=== PATIENT | female | born 1945 | race African-American/Black ===

== ENCOUNTER 2020-07-16 12:29 | Inpatient (IN) | payer MEDICARE, MEDICAID ==
[~2020-07-16] VITALS: Ht 167.6 cm; Wt 105.7 kg
[~2020-07-16 12:29] MED LIST: AMLO10TA4 PO; ATOR20TA PO; CLON0.5T4 PO; FLUC100T42 PO; GUAI120015 PO; LORA10TA7 PO; MELA3TAB63 PO; METF-416 PO; METO50TA95 PO; MONT10TA26 PO; OMEP20CA4 PO; PANT40TA4 PO; ROSU5TAB PO
[2020-07-16] MEDS ORDERED: ALBUTEROL (0.083%) 2.5MG/3ML NEB HHN STA (12:55)
[2020-07-16] MEDS ORDERED: METHYLPREDNISOLONE SOD SUCC 125 MG/2 ML VIAL IV STA (12:55)
[2020-07-16] MEDS ORDERED: IPRATROPIUM BROMIDE (0.02%) 0.5MG/2.5ML NEB HHN STA (12:55)
[2020-07-16] MEDS ORDERED: MAGNESIUM 2 G PREMIX 50 ML IV ONE (13:00)
[2020-07-16] MEDS ORDERED: ERYTHROMYCIN BASE 0.5% OPHTH OINT 3.5GM LEFTEYE ONE (13:00)
[2020-07-16 13:14] LABS: HEMATOCRIT. 33.4 % (36.0-48.0); HEMOGLOBIN. 10.6 g/dL (12.0-16.0); MEAN CORPUSCULAR HEMOGLOBIN 26.1 pg (28.0-32.0); MEAN CORPUSCULAR VOLUME 82.6 fL (81.0-99.0); MEAN PLATELET VOLUME 7.8 fl (7.4-10.4); PLATELET 296 x1000/uL (130-400); RED BLOOD CELL COUNT 4.05 mill/uL (4.2-5.4); RED CELL DISTRIBUTION WIDTH 19.5 % (11.6-14.6)
[2020-07-16 13:33] LABS: CHLORIDE 100 mEq/L (98-107)
[2020-07-16 13:43] LABS: PLATELET ESTIMATE NORMAL
[2020-07-16] MEDS ORDERED: ONDANSETRON HCL 4MG/2ML INJ IV ONE (14:15)
[2020-07-16] MEDS ORDERED: MORPHINE SULFATE 4 MG/ML CPJ (NOT FOR IM USE) IV ONE (14:15)
[2020-07-16] MEDS ORDERED: LEVOFLOXACIN 750MG PREMIX 150 ML IV NR (14:45)
[2020-07-16] MEDS ORDERED: CEFTRIAXONE 1 G PREMIX 50 ML IV SCH (16:15)
[2020-07-16] MEDS ORDERED: AZITHROMYCIN 500 MG in DEXT 5% WATER 250 ML IV SCH (17:00)
[2020-07-16 17:17] LABS: BG BASE EXCESS 6.5 mmol/L (-2.0-2.0); BG CARBOXYHEMOGLOBIN 3.1 % (0.5-1.5); BG DEOXYHEMOGLOBIN 19.4 % (0.0-5.0); BG HCO3 ACT 31.4 mmol/L (22.0-26.0); BG METHEMOGLOBIN 0.2 % (0.0-1.5); BG OXYGEN SATURATION 79.9 % (92.0-98.5); BG OXYHEMOGLOBIN 77.3 % (94.0-97.0); BG PCO2 46.9 mmHg (35.0-45.0); BG PH 7.443 (7.350-7.450); BG PO2 43.6 mmHg (75.0-100.0); BG SAMPLE SITE RIGHT BRACHIAL; BG TOTAL HEMOGLOBIN 9.9 g/dL (12.0-18.0); BG VENT MODE ROOM AIR
[2020-07-16 17:54] LABS: PROTHROMBIN TIME 10.6 sec (9.6-11.0)
[2020-07-16 18:00] VITALS: BP 158/83
[2020-07-16] MEDS ORDERED: IPRATROPIUM/ALBUTEROL 0.5-3(2.5)MG/3ML NEB HHN SCH (18:00)
[2020-07-16 20:00] VITALS: BP 171/84
[2020-07-16] MEDS ORDERED: DEXTROSE 50% WATER 50ML SYRINGE IV PRN (21:00)
[2020-07-16] MEDS: AZITHROMYCIN 500 MG in DEXT 5% WATER 250 ML IV SCH (21:47)
[2020-07-16] MEDS: BLOOD SUGAR DIAGNOSTIC STRIP TEST SCH (21:53)
[2020-07-16] MEDS: ENOXAPARIN 30MG/0.3ML SYR SUBCUT SCH (22:05)
[2020-07-16] MEDS: CLONIDINE 0.1MG TABLET PO PRN (22:05)
[2020-07-16] MEDS: INSULIN LISPRO 100 UNITS/ML SUBCUT SCH (22:06)
[2020-07-17] MEDS: ALBUTEROL 6.7GM HFA INHALER ORI SCH ×6 (00:40→20:07)
[2020-07-17 04:00] VITALS: BP_SYST 138; BP_SYST 144; BP_DIAS 69; BP_DIAS 77
[2020-07-17] MEDS: ACETAMINOPHEN 325MG TABLET PO PRN ×2 (05:17→08:30)
[2020-07-17] MEDS: BLOOD SUGAR DIAGNOSTIC STRIP TEST SCH ×4 (06:13→21:00)
[2020-07-17] MEDS: METFORMIN HCL 500MG TABLET PO SCH ×2 (06:33→16:23)
[2020-07-17] MEDS: INSULIN LISPRO 100 UNITS/ML SUBCUT SCH ×4 (06:34→21:00)
[2020-07-17 08:00] VITALS: BP 152/75
[2020-07-17] MEDS: DEXAMETHASONE 2MG TABLET PO SCH (08:28)
[2020-07-17] MEDS: ENOXAPARIN 30MG/0.3ML SYR SUBCUT SCH ×2 (08:30→21:00)
[2020-07-17] MEDS ORDERED: METOPROLOL TARTRATE 50MG TABLET PO SCH (09:00)
[2020-07-17] MEDS ORDERED: ENOXAPARIN 40MG/0.4ML SYR SUBCUT SCH (09:00)
[2020-07-17] MEDS: INSULIN GLARGINE UD 100 UNITS/ML SYR SUBCUT SCH ×2 (09:38→21:02)
[2020-07-17 10:35] LABS: HEMATOCRIT. 30.1 % (36.0-48.0); HEMOGLOBIN. 9.5 g/dL (12.0-16.0); MEAN CORPUSCULAR HEMOGLOBIN 26.2 pg (28.0-32.0); MEAN CORPUSCULAR VOLUME 82.9 fL (81.0-99.0); MEAN PLATELET VOLUME 7.8 fl (7.4-10.4); PLATELET 257 x1000/uL (130-400); RED BLOOD CELL COUNT 3.63 mill/uL (4.2-5.4); RED CELL DISTRIBUTION WIDTH 19.5 % (11.6-14.6)
[2020-07-17 12:00] VITALS: BP 146/67
[2020-07-17] MEDS ORDERED: ALPR0.5T MT (12:35)
[2020-07-17] MEDS: CEFTRIAXONE 1,000 MG in DEXTROSE 5% WATER 50 ML IV SCH (13:25)
[2020-07-17] MEDS: ALPRAZOLAM 0.5 MG TABLET PO PRN ×2 (14:47→23:08)
[2020-07-17] MEDS: AMLODIPINE 10MG TABLET PO SCH (14:47)
[2020-07-17 15:31] LABS: BG BASE EXCESS 7.8 mmol/L (-2.0-2.0); BG CARBOXYHEMOGLOBIN 1.2 % (0.5-1.5); BG HCO3 ACT 31.8 mmol/L (22.0-26.0); BG METHEMOGLOBIN 0.3 % (0.0-1.5); BG OXYHEMOGLOBIN 97.5 % (94.0-97.0); BG PCO2 42.5 mmHg (35.0-45.0); BG PH 7.492 (7.350-7.450); BG PO2 318.8 mmHg (75.0-100.0); BG SAMPLE SITE RIGHT RADIAL; BG TOTAL HEMOGLOBIN 9.2 g/dL (12.0-18.0); BG VENT MODE MASK - NRB
[2020-07-17 16:00] VITALS: BP 158/79
[2020-07-17] MEDS ORDERED: CEFTRIAXONE 1 G PREMIX 50 ML IV SCH (16:00)
[2020-07-17] MEDS: MONTELUKAST SODIUM 10MG TABLET PO SCH (16:23)
[2020-07-17] MEDS: ONDANSETRON HCL 4MG/2ML INJ IV PRN (16:23)
[2020-07-17 20:00] VITALS: BP 146/76
[2020-07-17] MEDS: AZITHROMYCIN 500 MG in DEXT 5% WATER 250 ML IV SCH (20:55)
[2020-07-17] MEDS: ATORVASTATIN CALCIUM 20MG TABLET PO SCH (20:55)
[2020-07-18] VITALS: BP 140/78
[2020-07-18] MEDS: ONDANSETRON HCL 4MG/2ML INJ IV PRN (00:28)
[2020-07-18] MEDS: ALBUTEROL 6.7GM HFA INHALER ORI SCH ×2 (00:54→04:00)
[2020-07-18] MEDS: HYDROCODONE/ACETAMINOPHEN 10/325MG TABLET PO PRN ×3 (01:00→14:58)
[2020-07-18 04:00] VITALS: BP 137/70
[2020-07-18] MEDS: IPRATROPIUM/ALBUTEROL 0.5-3(2.5)MG/3ML NEB HHN PRN ×3 (05:01→15:41)
[2020-07-18] MEDS: INSULIN LISPRO 100 UNITS/ML SUBCUT SCH ×4 (06:58→21:44)
[2020-07-18] MEDS: BLOOD SUGAR DIAGNOSTIC STRIP TEST SCH ×4 (06:58→21:27)
[2020-07-18 07:11] LABS: HEMATOCRIT. 28.4 % (36.0-48.0); HEMOGLOBIN. 8.8 g/dL (12.0-16.0); MEAN CORPUSCULAR HEMOGLOBIN 25.5 pg (28.0-32.0); MEAN CORPUSCULAR VOLUME 82.3 fL (81.0-99.0); MEAN PLATELET VOLUME 8.7 fl (7.4-10.4); PLATELET 236 x1000/uL (130-400); RED BLOOD CELL COUNT 3.45 mill/uL (4.2-5.4); RED CELL DISTRIBUTION WIDTH 18.8 % (11.6-14.6)
[2020-07-18 07:11] LABS: PLATELET ESTIMATE NORMAL
[2020-07-18] MEDS: ENOXAPARIN 30MG/0.3ML SYR SUBCUT SCH ×2 (08:17→21:27)
[2020-07-18] MEDS: DEXAMETHASONE 2MG TABLET PO SCH (08:17)
[2020-07-18] MEDS: METFORMIN HCL 500MG TABLET PO SCH (08:17)
[2020-07-18] MEDS: ALPRAZOLAM 0.5 MG TABLET PO PRN (08:17)
[2020-07-18] MEDS: AMLODIPINE 10MG TABLET PO SCH (08:17)
[2020-07-18 09:00] VITALS: BP 149/71
[2020-07-18] MEDS: INSULIN GLARGINE UD 100 UNITS/ML SYR SUBCUT SCH ×2 (10:39→21:45)
[2020-07-18 11:49] VITALS: BP 125/71
[2020-07-18] MEDS: CEFTRIAXONE 1,000 MG in DEXTROSE 5% WATER 50 ML IV SCH (14:57)
[2020-07-18 15:40] VITALS: BP 147/77
[2020-07-18] MEDS: LORAZEPAM 0.5MG TABLET PO PRN ×2 (16:34→21:51)
[2020-07-18] MEDS: MONTELUKAST SODIUM 10MG TABLET PO SCH (16:34)
[2020-07-18 17:50] LABS: PLATELET ESTIMATE NORMAL
[2020-07-18 20:26] VITALS: BP 147/82
[2020-07-18] MEDS: IPRATROPIUM/ALBUTEROL 0.5-3(2.5)MG/3ML NEB HHN SCH (21:04)
[2020-07-18] MEDS: AZITHROMYCIN 500 MG in DEXT 5% WATER 250 ML IV SCH (21:26)
[2020-07-18] MEDS: ATORVASTATIN CALCIUM 20MG TABLET PO SCH (21:27)
[2020-07-19 00:10] VITALS: BP 139/73
[2020-07-19] MEDS: ACETYLCYSTEINE 100MG/ML 10% VIAL 4ML INH SCH ×3 (00:39→16:20)
[2020-07-19] MEDS: IPRATROPIUM/ALBUTEROL 0.5-3(2.5)MG/3ML NEB HHN SCH ×6 (00:39→22:12)
[2020-07-19] MEDS: HYDROCODONE/ACETAMINOPHEN 10/325MG TABLET PO PRN ×3 (03:01→20:36)
[2020-07-19] MEDS: ONDANSETRON HCL 4MG/2ML INJ IV PRN ×2 (03:06→11:41)
[2020-07-19 04:00] VITALS: BP 132/64
[2020-07-19] MEDS: BLOOD SUGAR DIAGNOSTIC STRIP TEST SCH ×4 (06:29→20:42)
[2020-07-19 08:07] VITALS: BP 149/72
[2020-07-19] MEDS: AMLODIPINE 10MG TABLET PO SCH (08:28)
[2020-07-19] MEDS: LORAZEPAM 0.5MG TABLET PO PRN ×2 (08:28→16:51)
[2020-07-19] MEDS: ENOXAPARIN 30MG/0.3ML SYR SUBCUT SCH ×2 (08:30→20:37)
[2020-07-19] MEDS: INSULIN LISPRO 100 UNITS/ML SUBCUT SCH ×4 (08:33→21:10)
[2020-07-19 10:34] LABS: HEMATOCRIT. 28.6 % (36.0-48.0); MEAN CORPUSCULAR HEMOGLOBIN 26.2 pg (28.0-32.0); MEAN CORPUSCULAR VOLUME 82.9 fL (81.0-99.0); MEAN PLATELET VOLUME 8.4 fl (7.4-10.4); PLATELET 256 x1000/uL (130-400); RED BLOOD CELL COUNT 3.45 mill/uL (4.2-5.4); RED CELL DISTRIBUTION WIDTH 18.8 % (11.6-14.6)
[2020-07-19] MEDS ORDERED: TERBUTALINE SULFATE 1MG/ML VIAL SUBCUT NR (11:45)
[2020-07-19 11:59] VITALS: BP 152/74
[2020-07-19 12:01] LABS: CLARITY URINE CLEAR (CLEAR); COLOR URINE YELLOW (YELLOW); KETONES URINE NEGATIVE (NEGATIVE); LEUKOCYTE ESTERASE URINE 1+ (NEGATIVE); NITRITE URINE NEGATIVE (NEGATIVE); OCCULT BLOOD URINE TRACE (NEGATIVE); PROTEIN URINE TRACE (NEGATIVE); SPECIFIC GRAVITY URINE 1.021 (1.005-1.030); UROBILINOGEN URINE 0.2 E.U./dL (0.2-1.0)
[2020-07-19 12:15] LABS: *AMPHETAMINES SCREEN URINE NEGATIVE (NEGATIVE); *BARBITURATES SCREEN URINE NEGATIVE (NEGATIVE); *BENZODIAZEPINES SCREEN URINE PRESUMTIVE POSITIVE (NEGATIVE); *COCAINE SCREEN URINE NEGATIVE (NEGATIVE); METHADONE URINE SCREEN NEGATIVE (NEGATIVE)
[2020-07-19 12:16] LABS: CANNABINOID URINE SCREEN NEGATIVE (NEGATIVE); OPIATES URINE SCREEN PRESUMTIVE POSITIVE (NEGATIVE); PHENCYCLIDINE URINE SCREEN NEGATIVE (NEGATIVE)
[2020-07-19] MEDS: PREDNISONE 20MG TABLET PO SCH (12:34)
[2020-07-19] MEDS: INSULIN GLARGINE UD 100 UNITS/ML SYR SUBCUT SCH ×2 (12:35→21:10)
[2020-07-19 12:44] LABS: PLATELET ESTIMATE NORMAL
[2020-07-19] MEDS: CEFTRIAXONE 1,000 MG in DEXTROSE 5% WATER 50 ML IV SCH (14:25)
[2020-07-19 16:15] VITALS: BP 149/75
[2020-07-19] MEDS: MONTELUKAST SODIUM 10MG TABLET PO SCH (16:51)
[2020-07-19 20:00] VITALS: BP 145/82
[2020-07-19] MEDS: ATORVASTATIN CALCIUM 20MG TABLET PO SCH (20:34)
[2020-07-19] MEDS: AZITHROMYCIN 500 MG in DEXT 5% WATER 250 ML IV SCH (20:55)
[2020-07-20] VITALS (7 sets, daily range): BP systolic 133–178; BP diastolic 66–91
[2020-07-20] MEDS: ACETYLCYSTEINE 100MG/ML 10% VIAL 4ML INH SCH ×3 (01:00→15:51)
[2020-07-20] MEDS: IPRATROPIUM/ALBUTEROL 0.5-3(2.5)MG/3ML NEB HHN SCH ×6 (01:00→20:53)
[2020-07-20] MEDS: LORAZEPAM 0.5MG TABLET PO PRN (05:13)
[2020-07-20] MEDS: BLOOD SUGAR DIAGNOSTIC STRIP TEST SCH ×4 (07:20→20:48)
[2020-07-20] MEDS: PREDNISONE 20MG TABLET PO SCH (08:48)
[2020-07-20] MEDS: HYDROCODONE/ACETAMINOPHEN 10/325MG TABLET PO PRN ×3 (08:49→20:47)
[2020-07-20] MEDS: AMLODIPINE 10MG TABLET PO SCH (08:49)
[2020-07-20] MEDS: ENOXAPARIN 30MG/0.3ML SYR SUBCUT SCH ×2 (09:00→20:47)
[2020-07-20] MEDS: INSULIN LISPRO 100 UNITS/ML SUBCUT SCH ×4 (09:52→20:48)
[2020-07-20] MEDS: INSULIN GLARGINE UD 100 UNITS/ML SYR SUBCUT SCH ×2 (11:04→21:04)
[2020-07-20] MEDS ORDERED: ALBU18HF2 IH (12:48)
[2020-07-20] MEDS ORDERED: P20 PO (12:48)
[2020-07-20] MEDS ORDERED: ALPR0.5T MT (12:48)
[2020-07-20] MEDS ORDERED: GLIP5TAB12 MT (12:48)
[2020-07-20] MEDS ORDERED: TERBUTALINE SULFATE 1MG/ML VIAL SUBCUT NR (16:45)
[2020-07-20] MEDS: CLONIDINE 0.1MG TABLET PO PRN (16:50)
[2020-07-20] MEDS: MONTELUKAST SODIUM 10MG TABLET PO SCH (17:07)
[2020-07-20] MEDS: CEFTRIAXONE 1,000 MG in DEXTROSE 5% WATER 50 ML IV SCH (17:18)
[2020-07-20] MEDS ORDERED: *PATIENT'S OWN MEDICATION STORAGE XX SCH (19:15)
[2020-07-20] MEDS: ATORVASTATIN CALCIUM 20MG TABLET PO SCH (20:48)
[2020-07-20] MEDS: AZITHROMYCIN 500 MG in DEXT 5% WATER 250 ML IV SCH (20:48)
[2020-07-20] MEDS: THEOPHYLLINE ANHYDROUS 80 MG/15 ML 120ML PO SCH (21:02)
[2020-07-20] MEDS: ONDANSETRON HCL 4MG/2ML INJ IV PRN (21:14)
[2020-07-21] VITALS: BP 145/73
[2020-07-21] MEDS: LORAZEPAM 0.5MG TABLET PO PRN ×3 (00:13→18:42)
[2020-07-21] MEDS: ACETYLCYSTEINE 100MG/ML 10% VIAL 4ML INH SCH ×4 (00:37→16:03)
[2020-07-21] MEDS: IPRATROPIUM/ALBUTEROL 0.5-3(2.5)MG/3ML NEB HHN SCH ×6 (00:37→22:02)
[2020-07-21 04:30] VITALS: BP 151/75
[2020-07-21] MEDS: HYDROCODONE/ACETAMINOPHEN 10/325MG TABLET PO PRN ×4 (04:52→20:57)
[2020-07-21] MEDS: THEOPHYLLINE ANHYDROUS 80 MG/15 ML 120ML PO SCH ×3 (05:12→21:04)
[2020-07-21] MEDS: BLOOD SUGAR DIAGNOSTIC STRIP TEST SCH ×4 (07:20→20:59)
[2020-07-21] MEDS: INSULIN LISPRO 100 UNITS/ML SUBCUT SCH ×4 (07:50→20:58)
[2020-07-21 08:00] VITALS: BP 170/81
[2020-07-21] MEDS: ENOXAPARIN 30MG/0.3ML SYR SUBCUT SCH ×2 (09:02→20:58)
[2020-07-21] MEDS: PREDNISONE 20MG TABLET PO SCH (09:03)
[2020-07-21] MEDS: AMLODIPINE 10MG TABLET PO SCH (09:04)
[2020-07-21 12:00] VITALS: BP 145/69
[2020-07-21] MEDS: ONDANSETRON HCL 4MG/2ML INJ IV PRN (12:45)
[2020-07-21] MEDS ORDERED: INSULIN GLARGINE UD 100 UNITS/ML SYR SUBCUT NR (13:30)
[2020-07-21 13:49] LABS: BG BASE EXCESS 7.4 mmol/L (-2.0-2.0); BG CARBOXYHEMOGLOBIN 2.2 % (0.5-1.5); BG DEOXYHEMOGLOBIN 13.5 % (0.0-5.0); BG HCO3 ACT 31.8 mmol/L (22.0-26.0); BG METHEMOGLOBIN 0.3 % (0.0-1.5); BG OXYGEN SATURATION 86.2 % (92.0-98.5); BG PCO2 44.5 mmHg (35.0-45.0); BG PH 7.472 (7.350-7.450); BG PO2 50.8 mmHg (75.0-100.0); BG TOTAL HEMOGLOBIN 9.5 g/dL (12.0-18.0)
[2020-07-21] MEDS ORDERED: THEOL PO (14:15)
[2020-07-21 16:00] VITALS: BP 142/71
[2020-07-21] MEDS: MONTELUKAST SODIUM 10MG TABLET PO SCH (18:25)
[2020-07-21] MEDS: METFORMIN HCL 500MG TABLET PO SCH (18:25)
[2020-07-21 20:31] VITALS: BP 154/85
[2020-07-21] MEDS: ATORVASTATIN CALCIUM 20MG TABLET PO SCH (20:56)
[2020-07-21] MEDS: HYDRALAZINE HCL 50MG TABLET PO SCH (20:57)
[2020-07-21] MEDS: INSULIN GLARGINE UD 100 UNITS/ML SYR SUBCUT SCH (21:04)
[2020-07-22] VITALS (8 sets, daily range): BP systolic 140–159; BP diastolic 69–85
[2020-07-22] MEDS: ACETYLCYSTEINE 100MG/ML 10% VIAL 4ML INH SCH ×3 (00:55→21:51)
[2020-07-22] MEDS: IPRATROPIUM/ALBUTEROL 0.5-3(2.5)MG/3ML NEB HHN SCH ×6 (00:57→21:51)
[2020-07-22] MEDS: HYDROCODONE/ACETAMINOPHEN 10/325MG TABLET PO PRN ×4 (01:25→20:35)
[2020-07-22] MEDS: THEOPHYLLINE ANHYDROUS 80 MG/15 ML 120ML PO SCH ×3 (05:55→22:00)
[2020-07-22] MEDS: BLOOD SUGAR DIAGNOSTIC STRIP TEST SCH ×4 (06:20→20:26)
[2020-07-22] MEDS: INSULIN LISPRO 100 UNITS/ML SUBCUT SCH ×4 (07:50→20:26)
[2020-07-22] MEDS: ENOXAPARIN 30MG/0.3ML SYR SUBCUT SCH ×2 (08:30→20:33)
[2020-07-22] MEDS: PREDNISONE 20MG TABLET PO SCH (08:30)
[2020-07-22] MEDS: HYDRALAZINE HCL 50MG TABLET PO SCH ×2 (08:31→20:35)
[2020-07-22] MEDS: AMLODIPINE 10MG TABLET PO SCH (08:31)
[2020-07-22] MEDS: ONDANSETRON HCL 4MG/2ML INJ IV PRN ×2 (08:31→16:58)
[2020-07-22] MEDS: METFORMIN HCL 500MG TABLET PO SCH ×2 (08:31→16:58)
[2020-07-22] MEDS: INSULIN GLARGINE UD 100 UNITS/ML SYR SUBCUT SCH ×2 (10:19→22:00)
[2020-07-22] MEDS: LORAZEPAM 0.5MG TABLET PO PRN (16:58)
[2020-07-22] MEDS: MONTELUKAST SODIUM 10MG TABLET PO SCH (16:58)
[2020-07-22] MEDS: ATORVASTATIN CALCIUM 20MG TABLET PO SCH (20:34)
[2020-07-23] VITALS (7 sets, daily range): BP systolic 125–158; BP diastolic 59–81
[2020-07-23] MEDS: ACETYLCYSTEINE 100MG/ML 10% VIAL 4ML INH SCH ×2 (00:06→09:22)
[2020-07-23] MEDS: IPRATROPIUM/ALBUTEROL 0.5-3(2.5)MG/3ML NEB HHN SCH ×5 (00:10→21:00)
[2020-07-23] MEDS: ONDANSETRON HCL 4MG/2ML INJ IV PRN ×3 (01:22→15:36)
[2020-07-23] MEDS: HYDROCODONE/ACETAMINOPHEN 10/325MG TABLET PO PRN ×4 (03:16→22:06)
[2020-07-23] MEDS: THEOPHYLLINE ANHYDROUS 80 MG/15 ML 120ML PO SCH ×3 (06:00→20:51)
[2020-07-23] MEDS: INSULIN LISPRO 100 UNITS/ML SUBCUT SCH ×4 (07:50→20:28)
[2020-07-23] MEDS: BLOOD SUGAR DIAGNOSTIC STRIP TEST SCH ×4 (08:14→20:27)
[2020-07-23] MEDS: ENOXAPARIN 30MG/0.3ML SYR SUBCUT SCH ×2 (08:38→20:48)
[2020-07-23] MEDS: AMLODIPINE 10MG TABLET PO SCH (08:39)
[2020-07-23] MEDS: HYDRALAZINE HCL 50MG TABLET PO SCH ×2 (08:39→20:27)
[2020-07-23] MEDS: PREDNISONE 20MG TABLET PO SCH (08:39)
[2020-07-23] MEDS: METFORMIN HCL 500MG TABLET PO SCH ×2 (08:39→17:26)
[2020-07-23] MEDS: INSULIN GLARGINE UD 100 UNITS/ML SYR SUBCUT SCH ×2 (11:04→20:54)
[2020-07-23] MEDS: MONTELUKAST SODIUM 10MG TABLET PO SCH (17:26)
[2020-07-23] MEDS: IPRATROPIUM/ALBUTEROL 0.5-3(2.5)MG/3ML NEB HHN PRN (18:20)
[2020-07-23] MEDS: ATORVASTATIN CALCIUM 20MG TABLET PO SCH (20:27)
[2020-07-23] MEDS: ACETAMINOPHEN 325MG TABLET PO PRN (20:27)
[2020-07-23] MEDS: LORAZEPAM 0.5MG TABLET PO PRN (20:47)
[2020-07-23 21:45] LABS: HEMATOCRIT. 30.2 % (36.0-48.0); HEMOGLOBIN. 9.5 g/dL (12.0-16.0); MEAN CORPUSCULAR HEMOGLOBIN 26.3 pg (28.0-32.0); MEAN CORPUSCULAR VOLUME 83.6 fL (81.0-99.0); MEAN PLATELET VOLUME 7.9 fl (7.4-10.4); PLATELET 222 x1000/uL (130-400); RED BLOOD CELL COUNT 3.61 mill/uL (4.2-5.4); RED CELL DISTRIBUTION WIDTH 19.3 % (11.6-14.6)
[2020-07-23] MEDS ORDERED: LEVOFLOXACIN 500MG PREMIX 100 ML IV NR (22:00)
[2020-07-23] MEDS ORDERED: POTASSIUM CHLORIDE 20MEQ TABLET SR PO NR (22:51)
[2020-07-23 22:52] LABS: PLATELET ESTIMATE NORMAL
[2020-07-24] VITALS: BP 114/60
[2020-07-24] MEDS: IPRATROPIUM/ALBUTEROL 0.5-3(2.5)MG/3ML NEB HHN SCH ×5 (00:06→20:45)
[2020-07-24] MEDS: ONDANSETRON HCL 4MG/2ML INJ IV PRN ×3 (01:11→20:24)
[2020-07-24 04:00] VITALS: BP 132/70
[2020-07-24] MEDS: HYDROCODONE/ACETAMINOPHEN 10/325MG TABLET PO PRN ×3 (05:56→21:01)
[2020-07-24] MEDS: THEOPHYLLINE ANHYDROUS 80 MG/15 ML 120ML PO SCH ×3 (06:00→21:02)
[2020-07-24] MEDS: INSULIN LISPRO 100 UNITS/ML SUBCUT SCH ×4 (07:08→20:44)
[2020-07-24 07:52] LABS: HEMATOCRIT. 29.4 % (36.0-48.0); HEMOGLOBIN. 9.3 g/dL (12.0-16.0); MEAN CORPUSCULAR HEMOGLOBIN 26.1 pg (28.0-32.0); MEAN CORPUSCULAR VOLUME 82.4 fL (81.0-99.0); MEAN PLATELET VOLUME 8.1 fl (7.4-10.4); PLATELET 305 x1000/uL (130-400); RED BLOOD CELL COUNT 3.57 mill/uL (4.2-5.4); RED CELL DISTRIBUTION WIDTH 18.6 % (11.6-14.6)
[2020-07-24] MEDS: BLOOD SUGAR DIAGNOSTIC STRIP TEST SCH ×4 (08:15→20:44)
[2020-07-24 08:19] VITALS: BP 147/80
[2020-07-24] MEDS: METFORMIN HCL 500MG TABLET PO SCH ×2 (08:19→17:31)
[2020-07-24] MEDS: HYDRALAZINE HCL 50MG TABLET PO SCH ×2 (08:23→21:01)
[2020-07-24] MEDS: PREDNISONE 20MG TABLET PO SCH (08:23)
[2020-07-24] MEDS: AMLODIPINE 10MG TABLET PO SCH (08:24)
[2020-07-24] MEDS: ENOXAPARIN 30MG/0.3ML SYR SUBCUT SCH ×2 (08:36→21:02)
[2020-07-24] MEDS: INSULIN GLARGINE UD 100 UNITS/ML SYR SUBCUT SCH ×2 (10:50→21:56)
[2020-07-24 12:10] VITALS: BP 152/75
[2020-07-24 13:48] LABS: PLATELET ESTIMATE NORMAL
[2020-07-24] MEDS ORDERED: KCL 20MEQ/100ML PREMIX 100 ML IV NR (14:30)
[2020-07-24] MEDS: METOCLOPRAMIDE HCL 10MG TABLET PO PRN (15:22)
[2020-07-24 15:46] VITALS: BP 126/67
[2020-07-24] MEDS: MONTELUKAST SODIUM 10MG TABLET PO SCH (17:31)
[2020-07-24 20:52] VITALS: BP 144/78
[2020-07-24] MEDS ORDERED: LEVOFLOXACIN 250MG PREMIX 50 ML IV SCH (21:00)
[2020-07-24] MEDS: ATORVASTATIN CALCIUM 20MG TABLET PO SCH (21:00)
[2020-07-24] MEDS: LORAZEPAM 0.5MG TABLET PO PRN (21:56)
[2020-07-25 00:38] VITALS: BP 143/71
[2020-07-25] MEDS: IPRATROPIUM/ALBUTEROL 0.5-3(2.5)MG/3ML NEB HHN SCH ×4 (00:39→13:35)
[2020-07-25 04:00] VITALS: BP 144/67
[2020-07-25] MEDS: THEOPHYLLINE ANHYDROUS 80 MG/15 ML 120ML PO SCH ×2 (05:28→13:04)
[2020-07-25] MEDS: BLOOD SUGAR DIAGNOSTIC STRIP TEST SCH ×2 (06:33→12:03)
[2020-07-25] MEDS: HYDROCODONE/ACETAMINOPHEN 10/325MG TABLET PO PRN ×2 (06:40→13:57)
[2020-07-25] MEDS: METOCLOPRAMIDE HCL 10MG TABLET PO PRN (07:14)
[2020-07-25] MEDS: INSULIN LISPRO 100 UNITS/ML SUBCUT SCH ×2 (07:50→12:03)
[2020-07-25 08:00] VITALS: BP 118/55
[2020-07-25 08:02] LABS: HEMATOCRIT. 28.8 % (36.0-48.0); HEMOGLOBIN. 9.4 g/dL (12.0-16.0); MEAN CORPUSCULAR HEMOGLOBIN 26.9 pg (28.0-32.0); MEAN CORPUSCULAR VOLUME 82.7 fL (81.0-99.0); MEAN PLATELET VOLUME 7.9 fl (7.4-10.4); PLATELET 330 x1000/uL (130-400); RED BLOOD CELL COUNT 3.48 mill/uL (4.2-5.4); RED CELL DISTRIBUTION WIDTH 18.9 % (11.6-14.6)
[2020-07-25] MEDS: ENOXAPARIN 30MG/0.3ML SYR SUBCUT SCH (08:09)
[2020-07-25] MEDS: METFORMIN HCL 500MG TABLET PO SCH (08:10)
[2020-07-25] MEDS: PREDNISONE 20MG TABLET PO SCH (08:10)
[2020-07-25] MEDS: HYDRALAZINE HCL 50MG TABLET PO SCH (08:10)
[2020-07-25] MEDS: AMLODIPINE 10MG TABLET PO SCH (08:10)
[2020-07-25] MEDS: INSULIN GLARGINE UD 100 UNITS/ML SYR SUBCUT SCH (09:23)
[2020-07-25] MEDS: ONDANSETRON HCL 4MG/2ML INJ IV PRN (09:28)
[2020-07-25] MEDS: LORAZEPAM 0.5MG TABLET PO PRN (09:36)
[2020-07-25] MEDS ORDERED: POTASSIUM CHLORIDE 10MEQ TABLET SR PO NR (10:30)
[2020-07-25 11:46] VITALS: BP 144/77
[2020-07-25 11:46] LABS: PLATELET ESTIMATE NORMAL
[2020-07-25 12:00] VITALS: BP 115/51
[2020-07-25 13:57] VITALS: BP 115/51
[2020-07-25] MEDS ORDERED: LEVOFLOXACIN 250MG TABLET PO SCH (21:00)
== END 2020-07-25 15:44 | disposition home or self-care (01) | DRG 871 ==
LOC: ER 12:29 → 7EST 15:49 → EDBEDREQ 15:53 → ENRESERV 17:05 → 6WST 07-17 22:32
PROVIDERS: ADMIT Internal Medicine; ATTEND Internal Medicine
DX: A41.9 Sepsis, unspecified organism (principal); J96.20 Acute and chronic respiratory failure, unspecified whether with hypoxia or hypercapnia; J18.9 Pneumonia, unspecified organism; J44.1 Chronic obstructive pulmonary disease with (acute) exacerbation; E44.0 Moderate protein-calorie malnutrition; J44.0 Chronic obstructive pulmonary disease with (acute) lower respiratory infection; E11.9 Type 2 diabetes mellitus without complications; D64.9 Anemia, unspecified; E78.5 Hyperlipidemia, unspecified; E66.9 Obesity, unspecified; I10 Essential (primary) hypertension; I25.10 Atherosclerotic heart disease of native coronary artery without angina pectoris; K44.9 Diaphragmatic hernia without obstruction or gangrene; Z20.828 Contact with and (suspected) exposure to other viral communicable diseases; F41.9 Anxiety disorder, unspecified; E87.6 Hypokalemia; J45.909 Unspecified asthma, uncomplicated; Z68.37 Body mass index [BMI] 37.0-37.9, adult; Z99.81 Dependence on supplemental oxygen; Z88.0 Allergy status to penicillin; Z79.84 Long term (current) use of oral hypoglycemic drugs; Z79.899 Other long term (current) drug therapy
CPT/HCPCS: 36415; 36600; 71045; 71250; 74176; 80048; 80053; 80061; 80305; 81003; 82375; 82805; 82962; 83036; 83880; 84145; 84484; 85025; 87635; 92610; 94640; 96365; 97162; 97530; 99285; C1893; J0456; J0696; J1650; J1815; J1956; J2270; J2405; J2930; J3105; J3475; J3480; J7040; J7060; J7512; J7608; J8540; J8597

== ENCOUNTER 2020-11-10 22:00 | Inpatient (IN) | payer MEDICARE, MEDICAID ==
[~2020-11-10] VITALS: Ht 167.6 cm; Wt 98.0 kg
[~2020-11-10 22:00] MED LIST changes: +ALBU18HF2 IH; +ALPR0.5T MT; -FLUC100T42 PO; +GLIP5TAB12 MT; +MELA3TAB40 PO; -MELA3TAB63 PO; -METO50TA95 PO; -MONT10TA26 PO; +MONT10TA32 PO; +P20 PO; -PANT40TA4 PO; +PANT40TA51 PO; +THEOL PO
[2020-11-10] MEDS ORDERED: IPRATROPIUM BROMIDE (0.02%) 0.5MG/2.5ML NEB HHN STA (22:26)
[2020-11-10] MEDS ORDERED: ALBUTEROL (0.083%) 2.5MG/3ML NEB HHN STA (22:26)
[2020-11-10] MEDS ORDERED: METHYLPREDNISOLONE SOD SUCC 125 MG/2 ML VIAL IV STA (22:26)
[2020-11-10] MEDS ORDERED: FUROSEMIDE 40MG/4ML VIAL IVP ONE (22:30)
[2020-11-10] MEDS ORDERED: LEVOFLOXACIN 750MG PREMIX 150 ML IV ONE (22:30)
[2020-11-10] MEDS ORDERED: MAGNESIUM 2 G PREMIX 50 ML IV ONE (22:30)
[2020-11-10 22:46] LABS: HEMATOCRIT. 35.1 % (36.0-48.0); MEAN CORPUSCULAR HEMOGLOBIN 25.2 pg (28.0-32.0); MEAN CORPUSCULAR VOLUME 80.6 fL (81.0-99.0); MEAN PLATELET VOLUME 8.4 fl (7.4-10.4); PLATELET 400 x1000/uL (130-400); RED BLOOD CELL COUNT 4.36 mill/uL (4.2-5.4); RED CELL DISTRIBUTION WIDTH 19.9 % (11.6-14.6)
[2020-11-10 22:54] LABS: CHLORIDE 104 mEq/L (98-107)
[2020-11-10 23:08] LABS: PLATELET ESTIMATE NORMAL
[2020-11-10] MEDS ORDERED: ASPIRIN 81MG TABLET PO SCH (23:30)
[2020-11-11] MEDS ORDERED: MAGNESIUM/ALUMINUM HYDROXIDE/SIMETHICONE 30ML UDC PO PRN (04:00)
[2020-11-11] MEDS ORDERED: ONDANSETRON HCL 4MG/2ML INJ IV PRN (04:00)
[2020-11-11] MEDS ORDERED: GUAIFENESIN 200MG/10ML SUGAR FREE UDC PO PRN (04:00)
[2020-11-11] MEDS ORDERED: DOCUSATE SODIUM 100MG CAPSULE PO PRN (04:00)
[2020-11-11] MEDS ORDERED: IPRATROPIUM/ALBUTEROL 0.5-3(2.5)MG/3ML NEB HHN PRN (04:00)
[2020-11-11 05:49] VITALS: BP 160/89
[2020-11-11] MEDS: METHYLPREDNISOLONE SOD SUCC 125 MG/2 ML VIAL IV SCH ×3 (06:34→17:30)
[2020-11-11] MEDS: HYDROCODONE/ACETAMINOPHEN 5/325MG TABLET PO PRN ×3 (06:42→21:11)
[2020-11-11] MEDS: IPRATROPIUM/ALBUTEROL 0.5-3(2.5)MG/3ML NEB HHN SCH ×3 (07:47→20:57)
[2020-11-11 08:00] VITALS: BP 175/98
[2020-11-11] MEDS: LORAZEPAM 2MG/ML CPJ IV PRN (08:57)
[2020-11-11] MEDS: ENOXAPARIN 40MG/0.4ML SYR SUBCUT SCH (09:49)
[2020-11-11] MEDS: AMLODIPINE 10MG TABLET PO SCH (09:49)
[2020-11-11] MEDS: CLONIDINE 0.1MG TABLET PO PRN (09:49)
[2020-11-11] MEDS ORDERED: DEXTROSE 50% WATER 50ML SYRINGE IV PRN (11:00)
[2020-11-11 12:00] VITALS: BP 151/75
[2020-11-11] MEDS ORDERED: ACETAMINOPHEN 650MG/20.3ML UDC PO PRN (12:00)
[2020-11-11] MEDS ORDERED: CLONAZEPAM 0.5MG TABLET PO SCH (12:00)
[2020-11-11] MEDS: BLOOD SUGAR DIAGNOSTIC STRIP TEST SCH ×3 (12:15→21:13)
[2020-11-11] MEDS: LORATADINE 10MG TABLET PO SCH (12:24)
[2020-11-11] MEDS: INSULIN LISPRO 100 UNITS/ML SUBCUT SCH ×3 (12:24→21:13)
[2020-11-11] MEDS: CLINDAMYCIN 600MG PREMIX 50 ML IV SCH ×2 (14:12→21:11)
[2020-11-11] MEDS: THEOPHYLLINE ANHYDROUS 80 MG/15 ML 120ML PO SCH ×2 (14:32→21:12)
[2020-11-11 16:00] VITALS: BP 132/69
[2020-11-11] MEDS: MONTELUKAST SODIUM 10MG TABLET PO SCH (17:30)
[2020-11-11 20:00] VITALS: BP 138/73
[2020-11-11] MEDS ORDERED: ATORVASTATIN CALCIUM 20MG TABLET PO SCH (21:00)
[2020-11-11] MEDS ORDERED: LEVOFLOXACIN 500MG PREMIX 100 ML IV SCH (23:00)
[2020-11-12] VITALS: BP 127/71
[2020-11-12] MEDS: METHYLPREDNISOLONE SOD SUCC 125 MG/2 ML VIAL IV SCH ×5 (00:04→23:05)
[2020-11-12] MEDS: ALPRAZOLAM 0.5 MG TABLET PO PRN ×3 (00:04→17:52)
[2020-11-12] MEDS: IPRATROPIUM/ALBUTEROL 0.5-3(2.5)MG/3ML NEB HHN SCH ×4 (02:38→21:49)
[2020-11-12] MEDS: HYDROCODONE/ACETAMINOPHEN 5/325MG TABLET PO PRN ×4 (03:02→23:14)
[2020-11-12 04:00] VITALS: BP 141/57
[2020-11-12] MEDS: CLINDAMYCIN 600MG PREMIX 50 ML IV SCH ×3 (06:12→21:11)
[2020-11-12] MEDS: OMEPRAZOLE 20MG CAPSULE EXTENDED RELEASE PO SCH (06:12)
[2020-11-12] MEDS: INSULIN LISPRO 100 UNITS/ML SUBCUT SCH ×4 (06:13→21:12)
[2020-11-12] MEDS: THEOPHYLLINE ANHYDROUS 80 MG/15 ML 120ML PO SCH ×3 (06:13→21:13)
[2020-11-12] MEDS: BLOOD SUGAR DIAGNOSTIC STRIP TEST SCH ×4 (06:13→21:12)
[2020-11-12 08:25] LABS: CHLORIDE 105 mEq/L (98-107)
[2020-11-12 08:26] LABS: HEMATOCRIT. 25.7 % (36.0-48.0); HEMOGLOBIN. 8.3 g/dL (12.0-16.0); MEAN PLATELET VOLUME 8.9 fl (7.4-10.4); PLATELET 268 x1000/uL (130-400); RED BLOOD CELL COUNT 3.21 mill/uL (4.2-5.4); RED CELL DISTRIBUTION WIDTH 18.9 % (11.6-14.6)
[2020-11-12 08:32] LABS: LDL CHOLESTEROL 134 mg/dL (5-100)
[2020-11-12 08:33] LABS: HDL CHOLESTEROL 70 mg/dL (40-59)
[2020-11-12] MEDS: AMLODIPINE 10MG TABLET PO SCH (08:41)
[2020-11-12] MEDS: LORATADINE 10MG TABLET PO SCH (08:42)
[2020-11-12] MEDS: ENOXAPARIN 40MG/0.4ML SYR SUBCUT SCH (08:43)
[2020-11-12] MEDS ORDERED: AMLODIPINE 10MG TABLET PO SCH (09:00)
[2020-11-12] MEDS: POTASSIUM CHLORIDE 20MEQ TABLET SR PO SCH (10:11)
[2020-11-12 16:00] VITALS: BP 147/78
[2020-11-12 16:46] LABS: PLATELET ESTIMATE NORMAL
[2020-11-12] MEDS: MONTELUKAST SODIUM 10MG TABLET PO SCH (17:09)
[2020-11-12 20:00] VITALS: BP 128/70
[2020-11-12] MEDS: ATORVASTATIN CALCIUM 40MG TABLET PO SCH (21:11)
[2020-11-13] VITALS: BP 139/72
[2020-11-13] MEDS: IPRATROPIUM/ALBUTEROL 0.5-3(2.5)MG/3ML NEB HHN SCH ×3 (03:02→23:21)
[2020-11-13 04:00] VITALS: BP 141/70
[2020-11-13] MEDS: LORAZEPAM 2MG/ML CPJ IV PRN ×2 (04:08→13:36)
[2020-11-13] MEDS: HYDROCODONE/ACETAMINOPHEN 5/325MG TABLET PO PRN ×4 (06:35→19:50)
[2020-11-13] MEDS: OMEPRAZOLE 20MG CAPSULE EXTENDED RELEASE PO SCH (06:35)
[2020-11-13] MEDS: CLINDAMYCIN 600MG PREMIX 50 ML IV SCH ×3 (06:35→22:27)
[2020-11-13] MEDS: METHYLPREDNISOLONE SOD SUCC 125 MG/2 ML VIAL IV SCH ×4 (06:36→22:27)
[2020-11-13] MEDS: THEOPHYLLINE ANHYDROUS 80 MG/15 ML 120ML PO SCH ×3 (06:37→22:29)
[2020-11-13] MEDS: BLOOD SUGAR DIAGNOSTIC STRIP TEST SCH ×4 (06:38→21:00)
[2020-11-13] MEDS: INSULIN LISPRO 100 UNITS/ML SUBCUT SCH ×4 (06:38→22:30)
[2020-11-13 07:23] LABS: CHLORIDE 104 mEq/L (98-107)
[2020-11-13 08:00] VITALS: BP 139/72
[2020-11-13] MEDS: POTASSIUM CHLORIDE 20MEQ TABLET SR PO SCH (08:42)
[2020-11-13] MEDS: ENOXAPARIN 40MG/0.4ML SYR SUBCUT SCH (08:42)
[2020-11-13] MEDS: LORATADINE 10MG TABLET PO SCH (08:42)
[2020-11-13] MEDS: AMLODIPINE 10MG TABLET PO SCH (08:42)
[2020-11-13 12:00] VITALS: BP 119/68
[2020-11-13 16:00] VITALS: BP 125/65
[2020-11-13] MEDS: MONTELUKAST SODIUM 10MG TABLET PO SCH (17:10)
[2020-11-13] MEDS: ATORVASTATIN CALCIUM 40MG TABLET PO SCH (22:27)
[2020-11-13 22:31] VITALS: BP 139/71
[2020-11-13] MEDS: ALPRAZOLAM 0.5 MG TABLET PO PRN (22:50)
[2020-11-14] VITALS (9 sets, daily range): BP systolic 123–184; BP diastolic 66–82
[2020-11-14] MEDS: HYDROCODONE/ACETAMINOPHEN 5/325MG TABLET PO PRN ×5 (01:36→22:11)
[2020-11-14 01:57] LABS: CLARITY URINE CLOUDY (CLEAR); COLOR URINE YELLOW (YELLOW); KETONES URINE TRACE (NEGATIVE); LEUKOCYTE ESTERASE URINE NEGATIVE (NEGATIVE); NITRITE URINE NEGATIVE (NEGATIVE); OCCULT BLOOD URINE NEGATIVE (NEGATIVE); PH URINE 5.5 (4.5-8.0); PROTEIN URINE TRACE (NEGATIVE); SPECIFIC GRAVITY URINE 1.028 (1.005-1.030); UROBILINOGEN URINE 0.2 E.U./dL (0.2-1.0)
[2020-11-14] MEDS: CLINDAMYCIN 600MG PREMIX 50 ML IV SCH ×3 (05:16→22:10)
[2020-11-14] MEDS: METHYLPREDNISOLONE SOD SUCC 125 MG/2 ML VIAL IV SCH (05:17)
[2020-11-14] MEDS: THEOPHYLLINE ANHYDROUS 80 MG/15 ML 120ML PO SCH ×3 (05:17→22:11)
[2020-11-14] MEDS: BLOOD SUGAR DIAGNOSTIC STRIP TEST SCH ×4 (05:51→20:23)
[2020-11-14] MEDS: INSULIN LISPRO 100 UNITS/ML SUBCUT SCH ×4 (05:51→20:23)
[2020-11-14] MEDS: FAMOTIDINE 20MG TABLET PO SCH (06:42)
[2020-11-14] MEDS: LORATADINE 10MG TABLET PO SCH (09:32)
[2020-11-14] MEDS: ENOXAPARIN 40MG/0.4ML SYR SUBCUT SCH (09:33)
[2020-11-14] MEDS: CLONIDINE 0.1MG TABLET PO PRN (09:33)
[2020-11-14] MEDS: AMLODIPINE 10MG TABLET PO SCH (09:33)
[2020-11-14] MEDS: POTASSIUM CHLORIDE 20MEQ TABLET SR PO SCH (09:34)
[2020-11-14] MEDS: IPRATROPIUM/ALBUTEROL 0.5-3(2.5)MG/3ML NEB HHN SCH ×3 (09:49→21:05)
[2020-11-14] MEDS: ALPRAZOLAM 0.5 MG TABLET PO PRN (16:42)
[2020-11-14] MEDS: MONTELUKAST SODIUM 10MG TABLET PO SCH (17:34)
[2020-11-14] MEDS: ATORVASTATIN CALCIUM 40MG TABLET PO SCH (20:22)
[2020-11-14] MEDS: METHYLPREDNISOLONE SOD SUCC 40 MG/ML VIAL IV SCH (20:22)
[2020-11-15] VITALS: BP 160/80
[2020-11-15] MEDS: IPRATROPIUM/ALBUTEROL 0.5-3(2.5)MG/3ML NEB HHN SCH ×3 (02:56→14:10)
[2020-11-15 04:00] VITALS: BP 163/81
[2020-11-15] MEDS: CLONIDINE 0.1MG TABLET PO PRN (05:35)
[2020-11-15] MEDS: HYDROCODONE/ACETAMINOPHEN 5/325MG TABLET PO PRN ×2 (05:36→13:38)
[2020-11-15] MEDS: THEOPHYLLINE ANHYDROUS 80 MG/15 ML 120ML PO SCH ×2 (05:36→13:38)
[2020-11-15] MEDS: CLINDAMYCIN 600MG PREMIX 50 ML IV SCH ×2 (05:36→13:38)
[2020-11-15] MEDS: FAMOTIDINE 20MG TABLET PO SCH (06:46)
[2020-11-15] MEDS: ALPRAZOLAM 0.5 MG TABLET PO PRN ×2 (06:46→15:17)
[2020-11-15] MEDS: INSULIN LISPRO 100 UNITS/ML SUBCUT SCH ×2 (06:47→13:39)
[2020-11-15] MEDS: BLOOD SUGAR DIAGNOSTIC STRIP TEST SCH ×2 (06:47→12:10)
[2020-11-15 08:00] VITALS: BP 128/71
[2020-11-15] MEDS: POTASSIUM CHLORIDE 20MEQ TABLET SR PO SCH (08:59)
[2020-11-15] MEDS: AMLODIPINE 10MG TABLET PO SCH (09:03)
[2020-11-15] MEDS: ENOXAPARIN 40MG/0.4ML SYR SUBCUT SCH (09:03)
[2020-11-15] MEDS: METHYLPREDNISOLONE SOD SUCC 40 MG/ML VIAL IV SCH (09:04)
[2020-11-15] MEDS: LORATADINE 10MG TABLET PO SCH (09:07)
[2020-11-15] MEDS ORDERED: HYDR-4346 MT (11:21)
[2020-11-15 12:00] VITALS: BP 148/80
[2020-11-15 14:31] VITALS: BP_SYST 126; BP_SYST 148; BP_DIAS 66; BP_DIAS 80
== END 2020-11-15 18:00 | disposition home health service (06) | DRG 280 ==
LOC: ER 22:00 → 8WST 11-11 00:16 → EDBEDREQ 11-11 00:19 → ENRESERV 11-11 03:51 → 8WST 11-11 05:18
PROVIDERS: ADMIT Hospitalist; ATTEND Hospitalist
DX: I11.0 Hypertensive heart disease with heart failure (principal); J96.21 Acute and chronic respiratory failure with hypoxia; I21.A1 Myocardial infarction type 2; J44.1 Chronic obstructive pulmonary disease with (acute) exacerbation; J45.901 Unspecified asthma with (acute) exacerbation; E44.1 Mild protein-calorie malnutrition; I50.33 Acute on chronic diastolic (congestive) heart failure; R30.0 Dysuria; M54.9 Dorsalgia, unspecified; E78.00 Pure hypercholesterolemia, unspecified; I16.0 Hypertensive urgency; E78.5 Hyperlipidemia, unspecified; E11.9 Type 2 diabetes mellitus without complications; I48.91 Unspecified atrial fibrillation; Z82.49 Family history of ischemic heart disease and other diseases of the circulatory system; Z99.81 Dependence on supplemental oxygen; Z88.0 Allergy status to penicillin; Z79.899 Other long term (current) drug therapy; Z68.34 Body mass index [BMI] 34.0-34.9, adult
CPT/HCPCS: 36415; 71045; 80053; 80061; 81003; 82962; 83735; 83880; 84484; 85025; 93005; 93306; 93970; 94640; 97162; 99291; A6261; J1650; J1815; J1940; J1956; J2060; J2405; J2920; J2930; J3475; J3490; J7040

== ENCOUNTER 2021-12-15 10:46 | Emergency (ER) | payer MEDICARE, MEDICAID ==
[~2021-12-15] VITALS: Ht 170.2 cm; Wt 101.0 kg
[2021-12-15 11:55] LABS: BASOPHILS % 1.1 % (0.0-2.0); HEMATOCRIT. 24.8 % (36.0-48.0); HEMOGLOBIN. 8.3 g/dL (12.0-16.0); LYMPHOCYTES % 28.7 % (20.0-50.0); MEAN CORPUSCULAR HEMOGLOBIN 25.2 pg (28.0-32.0); MEAN CORPUSCULAR VOLUME 75.4 fL (81.0-99.0); MEAN PLATELET VOLUME 7.1 fl (7.4-10.4); MONOCYTES % 9.8 % (2.0-8.0); NEUTROPHILS % 52.4 % (40.0-76.0); PLATELET 273 x1000/uL (130-400); RED BLOOD CELL COUNT 3.29 mill/uL (4.2-5.4); RED CELL DISTRIBUTION WIDTH 16.6 % (11.6-14.6)
[2021-12-15 12:03] LABS: CHLORIDE 108 mEq/L (98-107)
[2021-12-15 12:33] LABS: CLARITY URINE CLEAR (CLEAR); COLOR URINE YELLOW (YELLOW); KETONES URINE NEGATIVE (NEGATIVE); LEUKOCYTE ESTERASE URINE 2+ (NEGATIVE); NITRITE URINE NEGATIVE (NEGATIVE); OCCULT BLOOD URINE TRACE (NEGATIVE); PH URINE 5.5 (4.5-8.0); PROTEIN URINE NEGATIVE (NEGATIVE); SPECIFIC GRAVITY URINE 1.016 (1.005-1.030); UROBILINOGEN URINE 0.2 E.U./dL (0.2-1.0)
[2021-12-15] MEDS ORDERED: CEFTRIAXONE 2 G PREMIX 50 ML IV ONE (14:30)
[2021-12-15] MEDS ORDERED: HYDROCODONE/ACETAMINOPHEN 5/325MG TABLET PO ONE (15:15)
[2021-12-15] MEDS ORDERED: CEFT2PIG IV ×2 (16:03→16:10)
[2021-12-15] MEDS ORDERED: HYDROCODONE/ACETAMINOPHEN 10/325MG TABLET PO ONE (21:15)
[2021-12-15 23:07] VITALS: BP 171/74
== END 2021-12-15 23:10 | disposition home or self-care (01) ==
LOC: ER 10:54 → CANBEDREQ 18:34 → ER 23:10
DX: N39.0 Urinary tract infection, site not specified (principal); I10 Essential (primary) hypertension; J44.1 Chronic obstructive pulmonary disease with (acute) exacerbation; E11.9 Type 2 diabetes mellitus without complications; Z79.899 Other long term (current) drug therapy
CPT/HCPCS: 36415; 71045; 80053; 81003; 83605; 84145; 84484; 85025; 93005; 96365; 99285; J0696

== ENCOUNTER 2022-07-03 01:45 | Inpatient (IN) | payer MEDICARE, MEDICAID ==
[~2022-07-03] VITALS: Ht 167.6 cm; Wt 71.7 kg
[2022-07-03] VITALS (53 sets, daily range): BP systolic 78–138; BP diastolic 34–114
[~2022-07-03 01:45] MED LIST changes: +CEFT2PIG IV; +MONT-39 PO; -MONT10TA32 PO
[2022-07-03] MEDS ORDERED: ONDANSETRON HCL 4MG/2ML INJ IV STA (01:51)
[2022-07-03] MEDS ORDERED: PANTOPRAZOLE SODIUM 40 MG/VIAL IV STA (01:51)
[2022-07-03] MEDS ORDERED: SODIUM CHLORIDE 0.9% 1,000 ML IV ONE ×2 (02:00→08:15)
[2022-07-03 03:18] LABS: BASOPHILS % 0.2 % (0.0-2.0); HEMATOCRIT. 25.1 % (36.0-48.0); HEMOGLOBIN. 8.1 g/dL (12.0-16.0); LYMPHOCYTES % 9.1 % (20.0-50.0); MEAN CORPUSCULAR HEMOGLOBIN 25.4 pg (28.0-32.0); MEAN CORPUSCULAR VOLUME 78.8 fL (81.0-99.0); MEAN PLATELET VOLUME 8.6 fl (7.4-10.4); MONOCYTES % 7.3 % (2.0-8.0); NEUTROPHILS % 83.4 % (40.0-76.0); PLATELET 409 x1000/uL (130-400); RED BLOOD CELL COUNT 3.18 mill/uL (4.2-5.4); RED CELL DISTRIBUTION WIDTH 15.6 % (11.6-14.6)
[2022-07-03 03:28] LABS: INR 1.2; PROTHROMBIN TIME 12.7 sec (9.6-11.0)
[2022-07-03 03:38] LABS: CHLORIDE 103 mEq/L (98-107)
[2022-07-03] MEDS ORDERED: DOCUSATE SODIUM 100MG CAPSULE PO PRN (08:15)
[2022-07-03] MEDS ORDERED: ONDANSETRON HCL 4MG/2ML INJ IV PRN (08:30)
[2022-07-03] MEDS ORDERED: ACETAMINOPHEN 325MG TABLET PO PRN (08:30)
[2022-07-03] MEDS ORDERED: VANCOMYCIN 1G PREMIX 200 ML IV NR (08:45)
[2022-07-03] MEDS ORDERED: IPRATROPIUM/ALBUTEROL 0.5-3(2.5)MG/3ML NEB HHN NR (08:45)
[2022-07-03] MEDS ORDERED: PANTOPRAZOLE SODIUM 40 MG/VIAL IV SCH (09:00)
[2022-07-03] MEDS ORDERED: METRONIDAZOLE 500 MG PREMIX 100 ML IV SCH ×2 (09:15→22:00)
[2022-07-03] MEDS ORDERED: LEVOFLOXACIN 500MG PREMIX 100 ML IV SCH (09:15)
[2022-07-03] MEDS: PANTOPRAZOLE SODIUM 40 MG/VIAL IV SCH ×2 (13:04→20:34)
[2022-07-03] MEDS: NOREPINEPHRINE 32 MG in DEXT 5% WATER 218 ML IV PRN (13:07)
[2022-07-03] MEDS: MORPHINE SULFATE 2 MG/ML CPJ (NOT FOR IM USE) IV PRN ×2 (14:42→20:39)
[2022-07-03] MEDS ORDERED: NALOXONE HCL 0.4 MG/ML 1ML VIAL IV PRN (15:45)
[2022-07-03] MEDS ORDERED: DEXTROSE 50% WATER 50ML SYRINGE IV PRN (16:30)
[2022-07-03] MEDS: BLOOD SUGAR DIAGNOSTIC STRIP TEST SCH ×2 (16:52→20:43)
[2022-07-03 17:09] LABS: PHOSPHORUS 2.9 mg/dL (2.5-4.9); T4 FREE 1.02 ng/dL (0.76-1.46)
[2022-07-03] MEDS: INSULIN LISPRO 100 UNITS/ML SUBCUT SCH ×2 (17:22→20:43)
[2022-07-03 17:30] LABS: CLARITY URINE TURBID (CLEAR); COLOR URINE DARK YELLOW (YELLOW); KETONES URINE NEGATIVE (NEGATIVE); LEUKOCYTE ESTERASE URINE 3+ (NEGATIVE); NITRITE URINE NEGATIVE (NEGATIVE); OCCULT BLOOD URINE 3+ (NEGATIVE); PROTEIN URINE 1+ (NEGATIVE); SPECIFIC GRAVITY URINE 1.019 (1.005-1.030); UROBILINOGEN URINE 0.2 E.U./dL (0.2-1.0)
[2022-07-03] MEDS: ACETAMINOPHEN 325MG TABLET PO PRN ×2 (17:30→23:21)
[2022-07-03] MEDS ORDERED: SODIUM CHLORIDE 0.9% 1000ML BAG (SEPSIS BOLUS) IV ONE (21:00)
[2022-07-03] MEDS: MEROPENEM 1,000 MG in SODIUM CHLORIDE 0.9% 100 ML IV SCH (22:54)
[2022-07-03] MEDS: DEXT 5%/LACTATED RINGERS 1,000 ML IV SCH (22:54)
[2022-07-04] VITALS (98 sets, daily range): BP systolic 24–156; BP diastolic 13–83
[2022-07-04] MEDS: BUDESONIDE 0.5MG/2ML NEB HHN SCH ×4 (00:30→16:22)
[2022-07-04] MEDS: IPRATROPIUM/ALBUTEROL 0.5-3(2.5)MG/3ML NEB HHN SCH ×5 (00:30→21:23)
[2022-07-04] MEDS ORDERED: MORPHINE SULFATE 2 MG/ML CPJ (NOT FOR IM USE) IV PRN (02:45)
[2022-07-04 05:19] LABS: HEMATOCRIT. 22.6 % (36.0-48.0); HEMOGLOBIN. 7.7 g/dL (12.0-16.0); MEAN CORPUSCULAR HEMOGLOBIN 27.6 pg (28.0-32.0); MEAN PLATELET VOLUME 7.7 fl (7.4-10.4); PLATELET 353 x1000/uL (130-400); RED BLOOD CELL COUNT 2.79 mill/uL (4.2-5.4); RED CELL DISTRIBUTION WIDTH 17.2 % (11.6-14.6)
[2022-07-04] MEDS: ACETAMINOPHEN 325MG TABLET PO PRN ×4 (05:30→23:46)
[2022-07-04] MEDS: BLOOD SUGAR DIAGNOSTIC STRIP TEST SCH ×4 (07:11→20:30)
[2022-07-04] MEDS: INSULIN LISPRO 100 UNITS/ML SUBCUT SCH ×4 (07:24→20:31)
[2022-07-04] MEDS: MEROPENEM 1,000 MG in SODIUM CHLORIDE 0.9% 100 ML IV SCH ×2 (08:51→20:22)
[2022-07-04] MEDS: PANTOPRAZOLE SODIUM 40 MG/VIAL IV SCH ×2 (08:51→16:23)
[2022-07-04] MEDS: NOREPINEPHRINE 32 MG in DEXT 5% WATER 218 ML IV PRN (08:52)
[2022-07-04] MEDS: KCL 20MEQ/100ML PREMIX 100 ML IV SCH ×2 (10:03→12:11)
[2022-07-04] MEDS ORDERED: IRON SUCROSE COMPLEX 100 MG/5 ML ML IV SCH (10:45)
[2022-07-04] MEDS ORDERED: NALOXONE HCL 0.4MG/ML VIAL IV PRN (10:45)
[2022-07-04] MEDS: DEXT 5%/LACTATED RINGERS 1,000 ML IV SCH ×2 (10:51→12:10)
[2022-07-04] MEDS: MORPHINE SULFATE 2 MG/ML CPJ (NOT FOR IM USE) IV PRN ×3 (10:51→19:32)
[2022-07-04] MEDS: VANCOMYCIN 1G PREMIX 200 ML IV SCH (12:10)
[2022-07-04] MEDS: IRON SUCROSE COMPLEX 100 MG/5 ML ML IV SCH (12:10)
[2022-07-04 12:49] LABS: PLATELET ESTIMATE NORMAL
[2022-07-04] MEDS ORDERED: LEVOFLOXACIN 250MG PREMIX 50 ML IV SCH (13:00)
[2022-07-04] MEDS ORDERED: METOPROLOL TARTRATE 5MG/5ML VIAL IV NR (16:15)
[2022-07-04 17:08] LABS: HEMATOCRIT 22.2 % (36.0-48.0); HEMOGLOBIN 7.6 g/dL (12.0-16.0)
[2022-07-04] MEDS ORDERED: SUCRALFATE 1G TABLET PO SCH (17:50)
[2022-07-04 17:55] LABS: FERRITIN 157 ng/mL (10-291); VITAMIN B12 SERUM 681 pg/mL (211-911)
[2022-07-05] VITALS (51 sets, daily range): BP systolic 98–161; BP diastolic 37–88
[2022-07-05] MEDS: DEXT 5%/LACTATED RINGERS 1,000 ML IV SCH ×2 (00:40→13:55)
[2022-07-05] MEDS: MORPHINE SULFATE 2 MG/ML CPJ (NOT FOR IM USE) IV PRN ×5 (01:07→22:04)
[2022-07-05 01:54] LABS: HEMATOCRIT 19.7 % (36.0-48.0)
[2022-07-05 01:57] LABS: HEMOGLOBIN 6.6 g/dL (12.0-16.0)
[2022-07-05] MEDS: BUDESONIDE 0.5MG/2ML NEB HHN SCH ×2 (02:20→09:00)
[2022-07-05] MEDS: IPRATROPIUM/ALBUTEROL 0.5-3(2.5)MG/3ML NEB HHN SCH ×3 (02:20→14:51)
[2022-07-05] MEDS: ACETAMINOPHEN 325MG TABLET PO PRN ×4 (05:06→17:49)
[2022-07-05] MEDS: VANCOMYCIN 1G PREMIX 200 ML IV SCH (06:42)
[2022-07-05] MEDS: BLOOD SUGAR DIAGNOSTIC STRIP TEST SCH ×4 (08:09→21:13)
[2022-07-05] MEDS ORDERED: MAGNESIUM 2 G PREMIX 50 ML IV NR (08:45)
[2022-07-05] MEDS: PANTOPRAZOLE SODIUM 40 MG/VIAL IV SCH ×2 (09:14→17:49)
[2022-07-05] MEDS: MEROPENEM 1,000 MG in SODIUM CHLORIDE 0.9% 100 ML IV SCH ×2 (09:18→21:20)
[2022-07-05] MEDS: INSULIN LISPRO 100 UNITS/ML SUBCUT SCH ×4 (09:18→21:00)
[2022-07-05] MEDS ORDERED: METOPROLOL TARTRATE 5MG/5ML VIAL IV PRN (10:15)
[2022-07-05] MEDS ORDERED: DIGOXIN 500MCG/2ML AMP IV PRN (10:15)
[2022-07-05] MEDS: IRON SUCROSE COMPLEX 100 MG/5 ML ML IV SCH (11:16)
[2022-07-05 13:02] LABS: HEMATOCRIT. 26.2 % (36.0-48.0); MEAN CORPUSCULAR VOLUME 81.4 fL (81.0-99.0); MEAN PLATELET VOLUME 7.6 fl (7.4-10.4); PLATELET 354 x1000/uL (130-400); RED BLOOD CELL COUNT 3.22 mill/uL (4.2-5.4); RED CELL DISTRIBUTION WIDTH 17.2 % (11.6-14.6)
[2022-07-05 13:12] LABS: CHLORIDE 115 mEq/L (98-107)
[2022-07-05 14:58] LABS: PLATELET ESTIMATE NORMAL
[2022-07-05 17:26] LABS: HEMATOCRIT 27.6 % (36.0-48.0); HEMOGLOBIN 9.3 g/dL (12.0-16.0)
[2022-07-05] MEDS: METOPROLOL TARTRATE 25MG TABLET PO SCH (21:00)
[2022-07-06] VITALS (11 sets, daily range): BP systolic 114–151; BP diastolic 63–76
[2022-07-06] MEDS: VANCOMYCIN 1G PREMIX 200 ML IV SCH (00:28)
[2022-07-06] MEDS: DEXT 5%/0.9% NACL KCL 20MEQ/L 1,000 ML IV SCH ×3 (01:07→21:07)
[2022-07-06] MEDS: DEXT 5%/LACTATED RINGERS 1,000 ML IV SCH (03:20)
[2022-07-06] MEDS: THEOPHYLLINE ANHYDROUS 80 MG/15 ML 120ML PO SCH ×3 (05:47→21:08)
[2022-07-06] MEDS: MORPHINE SULFATE 2 MG/ML CPJ (NOT FOR IM USE) IV PRN ×2 (05:50→19:31)
[2022-07-06] MEDS: BUDESONIDE 0.5MG/2ML NEB HHN SCH ×2 (07:48→20:22)
[2022-07-06] MEDS: IPRATROPIUM/ALBUTEROL 0.5-3(2.5)MG/3ML NEB HHN SCH ×3 (07:48→20:22)
[2022-07-06] MEDS: INSULIN LISPRO 100 UNITS/ML SUBCUT SCH ×4 (08:00→21:12)
[2022-07-06] MEDS: BLOOD SUGAR DIAGNOSTIC STRIP TEST SCH ×4 (08:13→21:08)
[2022-07-06] MEDS: CLONAZEPAM 0.5MG TABLET PO SCH (08:30)
[2022-07-06] MEDS: LORATADINE 10MG TABLET PO SCH (08:30)
[2022-07-06] MEDS: MONTELUKAST SODIUM 10MG TABLET PO SCH (08:31)
[2022-07-06] MEDS: PANTOPRAZOLE 40MG DR TABLET PO SCH ×2 (08:31→17:54)
[2022-07-06] MEDS: PREDNISONE 20MG TABLET PO SCH (08:31)
[2022-07-06] MEDS: METOPROLOL TARTRATE 25MG TABLET PO SCH (08:32)
[2022-07-06] MEDS: AMLODIPINE 10MG TABLET PO SCH (08:32)
[2022-07-06] MEDS: MEROPENEM 1,000 MG in SODIUM CHLORIDE 0.9% 100 ML IV SCH (08:34)
[2022-07-06] MEDS ORDERED: OMEPRAZOLE 20MG CAPSULE EXTENDED RELEASE PO SCH (09:00)
[2022-07-06 11:43] LABS: HEMATOCRIT. 27.1 % (36.0-48.0); MEAN CORPUSCULAR HEMOGLOBIN 26.9 pg (28.0-32.0); MEAN CORPUSCULAR VOLUME 81.5 fL (81.0-99.0); MEAN PLATELET VOLUME 7.6 fl (7.4-10.4); PLATELET 382 x1000/uL (130-400); RED BLOOD CELL COUNT 3.33 mill/uL (4.2-5.4); RED CELL DISTRIBUTION WIDTH 17.4 % (11.6-14.6)
[2022-07-06 11:59] LABS: INR 1.2; PROTHROMBIN TIME 12.6 sec (9.6-11.0)
[2022-07-06 12:22] LABS: PLATELET ESTIMATE NORMAL
[2022-07-06 12:31] LABS: CHLORIDE 110 mEq/L (98-107)
[2022-07-06 12:52] LABS: DIGOXIN < 0.1 ng/mL (0.9-2.0)
[2022-07-06] MEDS: CEFTRIAXONE 1,000 MG in DEXTROSE 5% WATER 50 ML IV SCH (15:14)
[2022-07-06] MEDS ORDERED: LIDOCAINE HCL 1% 10 MG/ML 10ML VIAL ONE (15:30)
[2022-07-06] MEDS ORDERED: PROPOFOL 200MG/20ML VIAL IV ONE (15:30)
[2022-07-06] MEDS ORDERED: EPHEDRINE SULFATE 50MG/ML VIAL ONE (15:31)
[2022-07-06] MEDS ORDERED: PHENYLEPHRINE HCL 10 MG/ML 1ML (IV VIAL) IV ONE (15:32)
[2022-07-06] MEDS: VANCOMYCIN 1GM PMX (XELLIA) 200 ML IV SCH (21:07)
[2022-07-06] MEDS: ATORVASTATIN CALCIUM 20MG TABLET PO SCH (21:07)
[2022-07-06] MEDS: METOPROLOL TARTRATE 50MG TABLET PO SCH (21:08)
[2022-07-07] VITALS (12 sets, daily range): BP systolic 103–143; BP diastolic 49–98
[2022-07-07] MEDS: MORPHINE SULFATE 2 MG/ML CPJ (NOT FOR IM USE) IV PRN ×3 (00:47→11:29)
[2022-07-07] MEDS: IPRATROPIUM/ALBUTEROL 0.5-3(2.5)MG/3ML NEB HHN SCH ×4 (01:05→20:01)
[2022-07-07] MEDS: DEXT 5%/0.9% NACL KCL 20MEQ/L 1,000 ML IV SCH ×2 (06:26→17:26)
[2022-07-07] MEDS: THEOPHYLLINE ANHYDROUS 80 MG/15 ML 120ML PO SCH ×3 (06:26→21:23)
[2022-07-07] MEDS: INSULIN LISPRO 100 UNITS/ML SUBCUT SCH ×4 (08:00→21:23)
[2022-07-07] MEDS: BLOOD SUGAR DIAGNOSTIC STRIP TEST SCH ×4 (08:25→21:22)
[2022-07-07] MEDS: CLONAZEPAM 0.5MG TABLET PO SCH (09:21)
[2022-07-07] MEDS: PREDNISONE 20MG TABLET PO SCH (09:21)
[2022-07-07] MEDS: PANTOPRAZOLE 40MG DR TABLET PO SCH ×2 (09:21→17:31)
[2022-07-07] MEDS: MONTELUKAST SODIUM 10MG TABLET PO SCH (09:22)
[2022-07-07] MEDS: LORATADINE 10MG TABLET PO SCH (09:22)
[2022-07-07] MEDS: AMLODIPINE 10MG TABLET PO SCH (09:23)
[2022-07-07] MEDS: METOPROLOL TARTRATE 50MG TABLET PO SCH ×2 (09:23→21:22)
[2022-07-07 11:21] LABS: BASOPHILS % 0.1 % (0.0-2.0); EOSINOPHILS % 0.1 % (0.0-5.0); HEMATOCRIT. 27.3 % (36.0-48.0); LYMPHOCYTES % 12.9 % (20.0-50.0); MEAN CORPUSCULAR HEMOGLOBIN 27.6 pg (28.0-32.0); MEAN CORPUSCULAR VOLUME 83.9 fL (81.0-99.0); MEAN PLATELET VOLUME 7.6 fl (7.4-10.4); MONOCYTES % 8.2 % (2.0-8.0); NEUTROPHILS % 78.7 % (40.0-76.0); PLATELET 408 x1000/uL (130-400); RED BLOOD CELL COUNT 3.25 mill/uL (4.2-5.4); RED CELL DISTRIBUTION WIDTH 17.7 % (11.6-14.6)
[2022-07-07 11:46] LABS: CHLORIDE 113 mEq/L (98-107)
[2022-07-07] MEDS: CEFTRIAXONE 1,000 MG in DEXTROSE 5% WATER 50 ML IV SCH (17:27)
[2022-07-07] MEDS: BUDESONIDE 0.5MG/2ML NEB HHN SCH (20:01)
[2022-07-07] MEDS: ATORVASTATIN CALCIUM 20MG TABLET PO SCH (21:21)
[2022-07-07] MEDS: VANCOMYCIN 1GM PMX (XELLIA) 200 ML IV SCH (21:22)
[2022-07-08] VITALS (12 sets, daily range): BP systolic 110–148; BP diastolic 58–93
[2022-07-08] MEDS: MORPHINE SULFATE 2 MG/ML CPJ (NOT FOR IM USE) IV PRN ×2 (00:42→05:51)
[2022-07-08] MEDS: IPRATROPIUM/ALBUTEROL 0.5-3(2.5)MG/3ML NEB HHN SCH ×4 (00:54→22:15)
[2022-07-08] MEDS: DEXT 5%/0.9% NACL KCL 20MEQ/L 1,000 ML IV SCH ×2 (02:25→21:34)
[2022-07-08] MEDS: THEOPHYLLINE ANHYDROUS 80 MG/15 ML 120ML PO SCH ×3 (05:50→21:31)
[2022-07-08] MEDS: BLOOD SUGAR DIAGNOSTIC STRIP TEST SCH ×4 (07:30→21:34)
[2022-07-08] MEDS: BUDESONIDE 0.5MG/2ML NEB HHN SCH ×2 (07:57→22:14)
[2022-07-08] MEDS: INSULIN LISPRO 100 UNITS/ML SUBCUT SCH ×4 (08:00→21:35)
[2022-07-08] MEDS ORDERED: PREDNISONE 20MG TABLET PO SCH (09:00)
[2022-07-08] MEDS: AMLODIPINE 10MG TABLET PO SCH (09:23)
[2022-07-08] MEDS: CLONAZEPAM 0.5MG TABLET PO SCH (09:23)
[2022-07-08] MEDS: PANTOPRAZOLE 40MG DR TABLET PO SCH ×2 (09:24→16:39)
[2022-07-08] MEDS: LORATADINE 10MG TABLET PO SCH (09:24)
[2022-07-08] MEDS: METOPROLOL TARTRATE 50MG TABLET PO SCH ×2 (09:30→21:33)
[2022-07-08] MEDS: MONTELUKAST SODIUM 10MG TABLET PO SCH (09:56)
[2022-07-08] MEDS: HYDROCODONE/ACETAMINOPHEN 5/325MG TABLET PO PRN ×3 (09:56→23:18)
[2022-07-08 10:18] LABS: HEMATOCRIT 27.2 % (36.0-48.0); HEMOGLOBIN 8.8 g/dL (12.0-16.0); MEAN CORPUSCULAR HEMOGLOBIN 27.3 pg (28.0-32.0); PLATELET 428 x1000/uL (130-400); RED BLOOD CELL COUNT 3.24 mill/uL (4.2-5.4); RED CELL DISTRIBUTION WIDTH 17.6 % (11.6-14.6)
[2022-07-08 10:30] LABS: CHLORIDE 112 mEq/L (98-107)
[2022-07-08] MEDS: CEFTRIAXONE 1,000 MG in DEXTROSE 5% WATER 50 ML IV SCH (16:40)
[2022-07-08] MEDS: ATORVASTATIN CALCIUM 20MG TABLET PO SCH (21:33)
[2022-07-08] MEDS: VANCOMYCIN 1GM PMX (XELLIA) 200 ML IV SCH (21:33)
[2022-07-09] VITALS (12 sets, daily range): BP systolic 125–154; BP diastolic 62–94
[2022-07-09] MEDS: IPRATROPIUM/ALBUTEROL 0.5-3(2.5)MG/3ML NEB HHN SCH ×4 (03:00→21:00)
[2022-07-09] MEDS: HYDROCODONE/ACETAMINOPHEN 5/325MG TABLET PO PRN ×3 (05:30→19:25)
[2022-07-09] MEDS: THEOPHYLLINE ANHYDROUS 80 MG/15 ML 120ML PO SCH ×3 (05:30→21:22)
[2022-07-09 05:52] LABS: HEMOGLOBIN 10.2 g/dL (12.0-16.0); MEAN CORPUSCULAR HEMOGLOBIN 27.4 pg (28.0-32.0); MEAN CORPUSCULAR VOLUME 83.6 fL (81.0-99.0); PLATELET 488 x1000/uL (130-400); RED BLOOD CELL COUNT 3.71 mill/uL (4.2-5.4)
[2022-07-09] MEDS: PANTOPRAZOLE 40MG DR TABLET PO SCH ×2 (07:30→17:55)
[2022-07-09 07:45] LABS: CHLORIDE 107 mEq/L (98-107)
[2022-07-09] MEDS: BLOOD SUGAR DIAGNOSTIC STRIP TEST SCH ×4 (07:59→21:00)
[2022-07-09] MEDS: INSULIN LISPRO 100 UNITS/ML SUBCUT SCH ×4 (07:59→21:00)
[2022-07-09] MEDS: BUDESONIDE 0.5MG/2ML NEB HHN SCH ×2 (08:47→21:00)
[2022-07-09] MEDS ORDERED: PREDNISONE 10MG TABLET PO SCH (09:00)
[2022-07-09] MEDS: METOPROLOL TARTRATE 50MG TABLET PO SCH ×2 (09:16→21:20)
[2022-07-09] MEDS: MONTELUKAST SODIUM 10MG TABLET PO SCH (09:16)
[2022-07-09] MEDS: LORATADINE 10MG TABLET PO SCH (09:16)
[2022-07-09] MEDS: ACETAMINOPHEN 325MG TABLET PO PRN ×2 (09:17→17:55)
[2022-07-09] MEDS: CLONAZEPAM 0.5MG TABLET PO SCH (09:17)
[2022-07-09] MEDS: AMLODIPINE 10MG TABLET PO SCH (09:17)
[2022-07-09] MEDS: CEFTRIAXONE 1,000 MG in DEXTROSE 5% WATER 50 ML IV SCH (15:21)
[2022-07-09] MEDS ORDERED: NALOXONE HCL 0.4MG/ML VIAL IV PRN (17:30)
[2022-07-09] MEDS: ATORVASTATIN CALCIUM 20MG TABLET PO SCH (21:20)
[2022-07-09] MEDS: DEXT 5%/0.9% NACL KCL 20MEQ/L 1,000 ML IV SCH (21:23)
[2022-07-10] VITALS (12 sets, daily range): BP systolic 116–162; BP diastolic 61–94
[2022-07-10] MEDS: ACETAMINOPHEN 325MG TABLET PO PRN ×2 (00:01→08:25)
[2022-07-10] MEDS: IPRATROPIUM/ALBUTEROL 0.5-3(2.5)MG/3ML NEB HHN SCH ×4 (01:00→20:25)
[2022-07-10] MEDS: HYDROCODONE/ACETAMINOPHEN 5/325MG TABLET PO PRN ×3 (03:51→15:52)
[2022-07-10] MEDS: THEOPHYLLINE ANHYDROUS 80 MG/15 ML 120ML PO SCH ×4 (06:04→21:23)
[2022-07-10] MEDS: DEXT 5%/0.9% NACL KCL 20MEQ/L 1,000 ML IV SCH ×2 (06:04→14:17)
[2022-07-10 06:35] LABS: CHLORIDE 106 mEq/L (98-107)
[2022-07-10 06:39] LABS: PHOSPHORUS 2.2 mg/dL (2.5-4.9)
[2022-07-10 07:53] LABS: HEMATOCRIT. 32.1 % (36.0-48.0); HEMOGLOBIN. 10.5 g/dL (12.0-16.0); MEAN CORPUSCULAR HEMOGLOBIN 27.2 pg (28.0-32.0); MEAN PLATELET VOLUME 7.6 fl (7.4-10.4); PLATELET 573 x1000/uL (130-400); RED BLOOD CELL COUNT 3.86 mill/uL (4.2-5.4); RED CELL DISTRIBUTION WIDTH 18.3 % (11.6-14.6)
[2022-07-10] MEDS: INSULIN LISPRO 100 UNITS/ML SUBCUT SCH ×4 (08:00→21:00)
[2022-07-10] MEDS: BLOOD SUGAR DIAGNOSTIC STRIP TEST SCH ×4 (08:03→21:10)
[2022-07-10] MEDS: METOPROLOL TARTRATE 50MG TABLET PO SCH ×2 (08:24→21:10)
[2022-07-10] MEDS: AMLODIPINE 10MG TABLET PO SCH (08:24)
[2022-07-10] MEDS: LORATADINE 10MG TABLET PO SCH (08:24)
[2022-07-10] MEDS: MONTELUKAST SODIUM 10MG TABLET PO SCH (08:24)
[2022-07-10] MEDS: CLONAZEPAM 0.5MG TABLET PO SCH (08:25)
[2022-07-10] MEDS: PANTOPRAZOLE 40MG DR TABLET PO SCH ×2 (08:25→18:28)
[2022-07-10] MEDS: BUDESONIDE 0.5MG/2ML NEB HHN SCH (08:34)
[2022-07-10 09:30] LABS: PLATELET ESTIMATE SLIGHTLY INCREASED
[2022-07-10] MEDS: CEFTRIAXONE 1,000 MG in DEXTROSE 5% WATER 50 ML IV SCH (15:55)
[2022-07-10] MEDS: ATORVASTATIN CALCIUM 20MG TABLET PO SCH (21:08)
[2022-07-11] VITALS (12 sets, daily range): BP systolic 121–163; BP diastolic 58–98
[2022-07-11] MEDS: DEXT 5%/0.9% NACL KCL 20MEQ/L 1,000 ML IV SCH ×3 (00:01→20:01)
[2022-07-11] MEDS: HYDROCODONE/ACETAMINOPHEN 5/325MG TABLET PO PRN ×4 (01:59→19:58)
[2022-07-11] MEDS: THEOPHYLLINE ANHYDROUS 80 MG/15 ML 120ML PO SCH ×4 (05:41→21:23)
[2022-07-11 06:35] LABS: BASOPHILS % 0.2 % (0.0-2.0); EOSINOPHILS % 1.3 % (0.0-5.0); HEMATOCRIT. 22.3 % (36.0-48.0); HEMOGLOBIN. 7.5 g/dL (12.0-16.0); LYMPHOCYTES % 18.3 % (20.0-50.0); MEAN CORPUSCULAR HEMOGLOBIN 27.7 pg (28.0-32.0); MEAN CORPUSCULAR VOLUME 82.7 fL (81.0-99.0); MEAN PLATELET VOLUME 6.8 fl (7.4-10.4); MONOCYTES % 7.3 % (2.0-8.0); NEUTROPHILS % 72.9 % (40.0-76.0); PLATELET 422 x1000/uL (130-400); RED CELL DISTRIBUTION WIDTH 18.1 % (11.6-14.6)
[2022-07-11 06:39] LABS: CHLORIDE 111 mEq/L (98-107)
[2022-07-11] MEDS: PANTOPRAZOLE 40MG DR TABLET PO SCH ×2 (07:40→18:43)
[2022-07-11] MEDS: BLOOD SUGAR DIAGNOSTIC STRIP TEST SCH ×4 (07:40→21:20)
[2022-07-11] MEDS: INSULIN LISPRO 100 UNITS/ML SUBCUT SCH ×4 (07:45→21:00)
[2022-07-11] MEDS: LORATADINE 10MG TABLET PO SCH (10:31)
[2022-07-11] MEDS: MONTELUKAST SODIUM 10MG TABLET PO SCH (10:31)
[2022-07-11] MEDS: METOPROLOL TARTRATE 50MG TABLET PO SCH ×2 (10:31→21:20)
[2022-07-11] MEDS: CLONAZEPAM 0.5MG TABLET PO SCH (10:31)
[2022-07-11] MEDS: AMLODIPINE 10MG TABLET PO SCH (10:32)
[2022-07-11] MEDS: DOCUSATE SODIUM 100MG CAPSULE PO SCH (10:33)
[2022-07-11] MEDS: IPRATROPIUM/ALBUTEROL 0.5-3(2.5)MG/3ML NEB HHN SCH ×2 (14:16→20:03)
[2022-07-11] MEDS: CEFTRIAXONE 1,000 MG in DEXTROSE 5% WATER 50 ML IV SCH (18:44)
[2022-07-11] MEDS: ATORVASTATIN CALCIUM 20MG TABLET PO SCH (21:20)
[2022-07-12] VITALS (11 sets, daily range): BP systolic 109–144; BP diastolic 59–79
[2022-07-12] MEDS: HYDROCODONE/ACETAMINOPHEN 5/325MG TABLET PO PRN ×4 (05:03→23:04)
[2022-07-12] MEDS: THEOPHYLLINE ANHYDROUS 80 MG/15 ML 120ML PO SCH ×4 (05:04→23:05)
[2022-07-12] MEDS: DEXT 5%/0.9% NACL KCL 20MEQ/L 1,000 ML IV SCH ×2 (05:04→15:31)
[2022-07-12 05:42] LABS: HEMATOCRIT. 27.3 % (36.0-48.0); HEMOGLOBIN. 9.2 g/dL (12.0-16.0); MEAN CORPUSCULAR HEMOGLOBIN 27.5 pg (28.0-32.0); PLATELET 513 x1000/uL (130-400); RED BLOOD CELL COUNT 3.34 mill/uL (4.2-5.4); RED CELL DISTRIBUTION WIDTH 18.3 % (11.6-14.6)
[2022-07-12 05:59] LABS: CHLORIDE 109 mEq/L (98-107)
[2022-07-12 06:10] LABS: GAMMA GLUTAMYL TRANSPEPTIDASE 22 IU/L (7-32)
[2022-07-12] MEDS: INSULIN LISPRO 100 UNITS/ML SUBCUT SCH ×4 (07:58→21:00)
[2022-07-12] MEDS: BLOOD SUGAR DIAGNOSTIC STRIP TEST SCH ×4 (07:58→21:00)
[2022-07-12] MEDS: PANTOPRAZOLE 40MG DR TABLET PO SCH ×2 (08:10→18:29)
[2022-07-12] MEDS: METOPROLOL TARTRATE 50MG TABLET PO SCH ×2 (08:10→23:04)
[2022-07-12] MEDS: DOCUSATE SODIUM 100MG CAPSULE PO SCH (08:10)
[2022-07-12] MEDS: MONTELUKAST SODIUM 10MG TABLET PO SCH (08:10)
[2022-07-12] MEDS: AMLODIPINE 10MG TABLET PO SCH (08:11)
[2022-07-12] MEDS: LORATADINE 10MG TABLET PO SCH (08:11)
[2022-07-12 09:17] LABS: PLATELET ESTIMATE INCREASED
[2022-07-12] MEDS ORDERED: ONDANSETRON 4MG ODT PO PRN (10:00)
[2022-07-12] MEDS ORDERED: BISACODYL 5MG TABLET PO NR (15:15)
[2022-07-12] MEDS: IPRATROPIUM/ALBUTEROL 0.5-3(2.5)MG/3ML NEB HHN SCH ×2 (16:47→20:40)
[2022-07-12] MEDS: ATORVASTATIN CALCIUM 20MG TABLET PO SCH (23:04)
[2022-07-13] VITALS (11 sets, daily range): BP systolic 107–146; BP diastolic 53–85
[2022-07-13] MEDS: DEXT 5%/0.9% NACL KCL 20MEQ/L 1,000 ML IV SCH ×2 (01:43→11:58)
[2022-07-13] MEDS: IPRATROPIUM/ALBUTEROL 0.5-3(2.5)MG/3ML NEB HHN SCH ×3 (03:02→13:36)
[2022-07-13] MEDS: THEOPHYLLINE ANHYDROUS 80 MG/15 ML 120ML PO SCH ×2 (05:20→13:52)
[2022-07-13] MEDS: HYDROCODONE/ACETAMINOPHEN 5/325MG TABLET PO PRN ×3 (05:28→16:50)
[2022-07-13 06:11] LABS: HEMATOCRIT 27.4 % (36.0-48.0); HEMOGLOBIN 8.9 g/dL (12.0-16.0); MEAN CORPUSCULAR HEMOGLOBIN 27.1 pg (28.0-32.0); MEAN CORPUSCULAR VOLUME 83.3 fL (81.0-99.0); PLATELET 476 x1000/uL (130-400); RED BLOOD CELL COUNT 3.29 mill/uL (4.2-5.4); RED CELL DISTRIBUTION WIDTH 18.6 % (11.6-14.6)
[2022-07-13 06:35] LABS: CHLORIDE 109 mEq/L (98-107)
[2022-07-13] MEDS: BLOOD SUGAR DIAGNOSTIC STRIP TEST SCH ×3 (07:30→16:40)
[2022-07-13] MEDS: INSULIN LISPRO 100 UNITS/ML SUBCUT SCH ×3 (08:00→16:43)
[2022-07-13] MEDS: MONTELUKAST SODIUM 10MG TABLET PO SCH (08:29)
[2022-07-13] MEDS: DOCUSATE SODIUM 100MG CAPSULE PO SCH (08:29)
[2022-07-13] MEDS: PANTOPRAZOLE 40MG DR TABLET PO SCH ×2 (08:29→16:51)
[2022-07-13] MEDS: METOPROLOL TARTRATE 50MG TABLET PO SCH (08:30)
[2022-07-13] MEDS: LORATADINE 10MG TABLET PO SCH (08:30)
[2022-07-13] MEDS: AMLODIPINE 10MG TABLET PO SCH (08:30)
[2022-07-13] MEDS ORDERED: BISACODYL 10MG SUPP PR NR (15:15)
[2022-07-13] MEDS ORDERED: BISACODYL 5MG TABLET PO NR (15:15)
[2022-07-13] MEDS ORDERED: LIDOCAINE 5% PATCH TOP SCH (17:00)
[2022-07-13] MEDS ORDERED: SENNOSIDES/DOCUSATE SOD 8.6/50MG TABLET PO SCH (21:00)
[2022-07-14] MEDS ORDERED: POLYETHYLENE GLYCOL 3350 (17GM) 1 DOSE PACK PO SCH (09:00)
[2022-07-14] MEDS ORDERED: LIDOCAINE 5% PATCH TOP SCH (09:00)
== END 2022-07-13 22:30 | DRG 853 ==
LOC: ER 01:57 → CVICU 04:42 → EDBEDREQTM 04:45 → EDBEDREQ 04:45 → 5EST 07-05 21:42
PROVIDERS: ADMIT Internal Medicine; ATTEND Internal Medicine
PROC: 06HY33Z Insertion of Infusion Device into Lower Vein, Percutaneous Approach (ICD-10-PCS; 2022-07-03)
PROC: 30233N1 Transfusion of Nonautologous Red Blood Cells into Peripheral Vein, Percutaneous Approach (ICD-10-PCS; 2022-07-03)
PROC: 0DB78ZX Excision of Stomach, Pylorus, Via Natural or Artificial Opening Endoscopic, Diagnostic (ICD-10-PCS; 2022-07-06)
PROC: 0JBR0ZZ Excision of Left Foot Subcutaneous Tissue and Fascia, Open Approach (ICD-10-PCS; principal; 2022-07-07)
PROC: 0JB70ZZ Excision of Back Subcutaneous Tissue and Fascia, Open Approach (ICD-10-PCS; 2022-07-10)
DX: A41.9 Sepsis, unspecified organism (principal); E43 Unspecified severe protein-calorie malnutrition; L89.153 Pressure ulcer of sacral region, stage 3; G92.8 Other toxic encephalopathy; L89.893 Pressure ulcer of other site, stage 3; R65.21 Severe sepsis with septic shock; K20.91 Esophagitis, unspecified with bleeding; N17.0 Acute kidney failure with tubular necrosis; K29.61 Other gastritis with bleeding; M87.9 Osteonecrosis, unspecified; N39.0 Urinary tract infection, site not specified; I48.19 Other persistent atrial fibrillation; I50.30 Unspecified diastolic (congestive) heart failure; E11.9 Type 2 diabetes mellitus without complications; Z20.822 Contact with and (suspected) exposure to COVID-19; J44.9 Chronic obstructive pulmonary disease, unspecified; K44.9 Diaphragmatic hernia without obstruction or gangrene; K82.8 Other specified diseases of gallbladder; K21.9 Gastro-esophageal reflux disease without esophagitis; E78.00 Pure hypercholesterolemia, unspecified; I95.9 Hypotension, unspecified; K76.0 Fatty (change of) liver, not elsewhere classified; E78.5 Hyperlipidemia, unspecified; M21.951 Unspecified acquired deformity of right thigh; B96.81 Helicobacter pylori [H. pylori] as the cause of diseases classified elsewhere; D50.0 Iron deficiency anemia secondary to blood loss (chronic); I11.0 Hypertensive heart disease with heart failure; K59.03 Drug induced constipation; T40.605A Adverse effect of unspecified narcotics, initial encounter; K80.20 Calculus of gallbladder without cholecystitis without obstruction; M16.11 Unilateral primary osteoarthritis, right hip; G89.29 Other chronic pain; Z88.0 Allergy status to penicillin; Z68.25 Body mass index [BMI] 25.0-25.9, adult; Z79.01 Long term (current) use of anticoagulants; Z79.899 Other long term (current) drug therapy; Z79.52 Long term (current) use of systemic steroids; Z79.84 Long term (current) use of oral hypoglycemic drugs
CPT/HCPCS: 36415; 71045; 72195; 73501; 74176; 76705; 80048; 80053; 80061; 80076; 80162; 80202; 81003; 82040; 82248; 82550; 82607; 82728; 82746; 82962; 82977; 83036; 83540; 83605; 83735; 84100; 84134; 84145; 84439; 84443; 84484; 85014; 85018; 85025; 85027; 85044; 86850; 86900; 86920; 87426; 88305; 93005; 93306; 93923; 94640; 97162; 97165; 99291; A6261; C9113; J0696; J1815; J1956; J2185; J2270; J2370; J2405; J2704; J3370; J3475; J3480; J3490; J7030; J7050; J7060; J7121; J7512; J7626; P9016; A4315

== ENCOUNTER 2022-07-26 14:13 | Inpatient (IN) | payer MEDICARE, MEDICAID ==
[~2022-07-26] VITALS: Ht 167.6 cm; Wt 74.4 kg
[2022-07-26 16:00] LABS: BASOPHILS % 0.4 % (0.0-2.0); EOSINOPHILS % 0.9 % (0.0-5.0); HEMATOCRIT. 26.5 % (36.0-48.0); HEMOGLOBIN. 8.8 g/dL (12.0-16.0); LYMPHOCYTES % 13.5 % (20.0-50.0); MEAN CORPUSCULAR HEMOGLOBIN 26.3 pg (28.0-32.0); MEAN CORPUSCULAR VOLUME 79.1 fL (81.0-99.0); MEAN PLATELET VOLUME 6.9 fl (7.4-10.4); MONOCYTES % 9.3 % (2.0-8.0); NEUTROPHILS % 75.9 % (40.0-76.0); PLATELET 575 x1000/uL (130-400); RED BLOOD CELL COUNT 3.35 mill/uL (4.2-5.4); RED CELL DISTRIBUTION WIDTH 18.4 % (11.6-14.6)
[2022-07-26 16:05] LABS: CHLORIDE 105 mEq/L (98-107)
[2022-07-26] MEDS ORDERED: HYDROCODONE/ACETAMINOPHEN 5/325MG TABLET PO ONE (16:30)
[2022-07-26] MEDS ORDERED: VANCOMYCIN 1G PREMIX 200 ML IV SCH (18:30)
[2022-07-26] MEDS ORDERED: CEFTRIAXONE 1 G PREMIX 50 ML IV ONE (18:30)
[2022-07-26] MEDS ORDERED: MAGNESIUM/ALUMINUM HYDROXIDE/SIMETHICONE 30ML UDC PO PRN (19:45)
[2022-07-26] MEDS ORDERED: ONDANSETRON HCL 4MG/2ML INJ IV PRN (19:45)
[2022-07-26] MEDS ORDERED: IPRATROPIUM/ALBUTEROL 0.5-3(2.5)MG/3ML NEB NEB PRN (19:45)
[2022-07-26] MEDS ORDERED: ACETAMINOPHEN 325MG TABLET PO PRN (19:45)
[2022-07-26] MEDS ORDERED: PIPERACILLIN/TAZ 3.375G PREMIX 50 ML IV SCH (19:45)
[2022-07-26] MEDS ORDERED: DEXTROSE 50% WATER 50ML SYRINGE IV PRN (19:45)
[2022-07-26] MEDS ORDERED: DOCUSATE SODIUM 100MG CAPSULE PO PRN (19:45)
[2022-07-26] MEDS ORDERED: ZOLPIDEM TARTRATE 5MG TABLET PO PRN (19:45)
[2022-07-26] MEDS ORDERED: POTASSIUM CHLORIDE 20MEQ TABLET SR PO NR (19:45)
[2022-07-26] MEDS ORDERED: CLONIDINE 0.1MG TABLET PO PRN (19:45)
[2022-07-26] MEDS ORDERED: NITROGLYCERIN 0.4MG TABLET SL SL PRN (19:45)
[2022-07-26] MEDS ORDERED: VANCOMYCIN 1,000 MG in DEXT 5% WATER 250 ML IV NR (20:00)
[2022-07-26] MEDS: INSULIN LISPRO 100 UNITS/ML SUBCUT SCH (21:00)
[2022-07-26 21:22] LABS: TOTAL IRON BINDING CAPACITY 162 ug/dL (250-450)
[2022-07-26] MEDS ORDERED: MEROPENEM 1,000 MG in SODIUM CHLORIDE 0.9% 100 ML IV SCH (21:30)
[2022-07-26] MEDS: ATORVASTATIN CALCIUM 20MG TABLET PO SCH (21:37)
[2022-07-26] MEDS: ASCORBIC ACID 500 MG TABLET PO SCH (21:38)
[2022-07-26] MEDS: FAMOTIDINE 20MG TABLET PO SCH (21:38)
[2022-07-26] MEDS: BLOOD SUGAR DIAGNOSTIC STRIP TEST SCH (21:43)
[2022-07-26] MEDS: SUCRALFATE 1 G/10 ML UDC PO SCH (22:42)
[2022-07-26] MEDS: ACETAMINOPHEN 325MG TABLET PO PRN (22:42)
[2022-07-26 23:30] VITALS: BP 126/64
[2022-07-27] MEDS: HYDROCODONE/ACETAMINOPHEN 10/325MG TABLET PO PRN ×3 (02:25→14:35)
[2022-07-27 07:26] LABS: BASOPHILS % 0.6 % (0.0-2.0); EOSINOPHILS % 0.5 % (0.0-5.0); HEMATOCRIT. 25.7 % (36.0-48.0); HEMOGLOBIN. 8.5 g/dL (12.0-16.0); LYMPHOCYTES % 15.7 % (20.0-50.0); MEAN CORPUSCULAR HEMOGLOBIN 26.2 pg (28.0-32.0); MEAN CORPUSCULAR VOLUME 79.5 fL (81.0-99.0); MEAN PLATELET VOLUME 6.9 fl (7.4-10.4); NEUTROPHILS % 75.2 % (40.0-76.0); PLATELET 547 x1000/uL (130-400); RED BLOOD CELL COUNT 3.24 mill/uL (4.2-5.4); RED CELL DISTRIBUTION WIDTH 18.1 % (11.6-14.6)
[2022-07-27] MEDS: INSULIN LISPRO 100 UNITS/ML SUBCUT SCH ×4 (07:50→20:57)
[2022-07-27 08:00] VITALS: BP 133/69
[2022-07-27] MEDS: BLOOD SUGAR DIAGNOSTIC STRIP TEST SCH ×5 (08:17→21:00)
[2022-07-27] MEDS: FERROUS SULFATE 300MG/5ML UDC PO SCH ×3 (08:27→17:53)
[2022-07-27] MEDS: AMLODIPINE 10MG TABLET PO SCH (08:28)
[2022-07-27] MEDS: ENOXAPARIN 40MG/0.4ML SYR SUBCUT SCH (08:29)
[2022-07-27] MEDS: ACETAMINOPHEN 325MG TABLET PO PRN ×2 (08:29→18:17)
[2022-07-27] MEDS: ASCORBIC ACID 500 MG TABLET PO SCH ×2 (08:29→20:58)
[2022-07-27] MEDS: FAMOTIDINE 20MG TABLET PO SCH ×2 (08:30→20:58)
[2022-07-27] MEDS: SUCRALFATE 1 G/10 ML UDC PO SCH ×4 (08:30→20:58)
[2022-07-27] MEDS: ZINC SULFATE 220 MG ( 50 ) CAPSULE PO SCH (08:33)
[2022-07-27] MEDS: GUAIFENESIN 200MG/10ML SUGAR FREE UDC PO PRN ×2 (09:44→18:17)
[2022-07-27 10:40] LABS: CHLORIDE 108 mEq/L (98-107)
[2022-07-27 11:10] LABS: PHOSPHORUS 2.2 mg/dL (2.5-4.9)
[2022-07-27 12:00] VITALS: BP 114/61
[2022-07-27 16:00] VITALS: BP 135/69
[2022-07-27] MEDS: MEROPENEM 1,000 MG in SODIUM CHLORIDE 0.9% 100 ML IV SCH ×3 (17:53→22:00)
[2022-07-27 20:00] VITALS: BP 137/68
[2022-07-27] MEDS: ATORVASTATIN CALCIUM 20MG TABLET PO SCH (20:58)
[2022-07-27] MEDS: VANCOMYCIN 1,000 MG in DEXT 5% WATER 250 ML IV SCH (20:58)
[2022-07-28] VITALS: BP 114/65
[2022-07-28] MEDS: VANCOMYCIN 1,000 MG in DEXT 5% WATER 250 ML IV SCH (00:35)
[2022-07-28 04:00] VITALS: BP 128/73
[2022-07-28] MEDS: HYDROCODONE/ACETAMINOPHEN 10/325MG TABLET PO PRN ×3 (05:24→23:19)
[2022-07-28] MEDS: MEROPENEM 1,000 MG in SODIUM CHLORIDE 0.9% 100 ML IV SCH ×2 (06:00→14:00)
[2022-07-28] MEDS: SUCRALFATE 1 G/10 ML UDC PO SCH ×4 (06:52→23:05)
[2022-07-28] MEDS: BLOOD SUGAR DIAGNOSTIC STRIP TEST SCH ×3 (06:59→18:11)
[2022-07-28] MEDS: FERROUS SULFATE 300MG/5ML UDC PO SCH ×3 (07:50→17:50)
[2022-07-28] MEDS: INSULIN LISPRO 100 UNITS/ML SUBCUT SCH ×4 (07:50→21:00)
[2022-07-28 08:00] VITALS: BP 134/59
[2022-07-28] MEDS: FAMOTIDINE 20MG TABLET PO SCH ×2 (09:00→21:00)
[2022-07-28] MEDS: ENOXAPARIN 40MG/0.4ML SYR SUBCUT SCH (09:50)
[2022-07-28] MEDS: ZINC SULFATE 220 MG ( 50 ) CAPSULE PO SCH (09:50)
[2022-07-28] MEDS: AMLODIPINE 10MG TABLET PO SCH (09:50)
[2022-07-28] MEDS: ASCORBIC ACID 500 MG TABLET PO SCH ×2 (09:51→23:04)
[2022-07-28 12:00] VITALS: BP 141/88
[2022-07-28 16:00] VITALS: BP 123/63
[2022-07-28 20:00] VITALS: BP 106/50
[2022-07-28] MEDS: ATORVASTATIN CALCIUM 20MG TABLET PO SCH (21:00)
[2022-07-29] VITALS: BP 118/72
[2022-07-29] MEDS: MEROPENEM 1,000 MG in SODIUM CHLORIDE 0.9% 100 ML IV SCH ×4 (00:43→21:30)
[2022-07-29 04:00] VITALS: BP 117/59
[2022-07-29] MEDS: SUCRALFATE 1 G/10 ML UDC PO SCH ×4 (06:26→20:40)
[2022-07-29] MEDS: BLOOD SUGAR DIAGNOSTIC STRIP TEST SCH ×4 (07:20→20:37)
[2022-07-29] MEDS: INSULIN LISPRO 100 UNITS/ML SUBCUT SCH ×4 (07:50→20:40)
[2022-07-29 08:06] VITALS: BP 122/73
[2022-07-29] MEDS: FERROUS SULFATE 300MG/5ML UDC PO SCH ×3 (08:33→18:34)
[2022-07-29] MEDS: AMLODIPINE 10MG TABLET PO SCH (08:33)
[2022-07-29] MEDS: FAMOTIDINE 20MG TABLET PO SCH ×2 (08:34→20:37)
[2022-07-29] MEDS: ASCORBIC ACID 500 MG TABLET PO SCH ×2 (08:34→20:37)
[2022-07-29] MEDS: ZINC SULFATE 220 MG ( 50 ) CAPSULE PO SCH (08:34)
[2022-07-29] MEDS: ENOXAPARIN 40MG/0.4ML SYR SUBCUT SCH (08:37)
[2022-07-29 08:49] LABS: HEMATOCRIT 25.5 % (36.0-48.0); HEMOGLOBIN 8.5 g/dL (12.0-16.0); MEAN CORPUSCULAR HEMOGLOBIN 26.2 pg (28.0-32.0); MEAN CORPUSCULAR VOLUME 78.7 fL (81.0-99.0); PLATELET 654 x1000/uL (130-400); RED BLOOD CELL COUNT 3.24 mill/uL (4.2-5.4); RED CELL DISTRIBUTION WIDTH 18.5 % (11.6-14.6)
[2022-07-29 08:51] LABS: CHLORIDE 107 mEq/L (98-107)
[2022-07-29] MEDS ORDERED: POTASSIUM CHLORIDE 20MEQ TABLET SR PO NR (10:10)
[2022-07-29] MEDS ORDERED: MAGNESIUM 2 G PREMIX 50 ML IV NR (11:00)
[2022-07-29] MEDS: HYDROCODONE/ACETAMINOPHEN 10/325MG TABLET PO PRN ×2 (12:33→18:34)
[2022-07-29 12:37] VITALS: BP 122/76
[2022-07-29] MEDS: ACETAMINOPHEN 325MG TABLET PO PRN (14:32)
[2022-07-29 16:00] VITALS: BP 129/83
[2022-07-29 20:00] VITALS: BP 130/75
[2022-07-29] MEDS: VANCOMYCIN 1,000 MG in DEXT 5% WATER 250 ML IV SCH (20:36)
[2022-07-29] MEDS: ATORVASTATIN CALCIUM 20MG TABLET PO SCH (20:37)
[2022-07-30] VITALS (8 sets, daily range): BP systolic 95–141; BP diastolic 65–79
[2022-07-30] MEDS: HYDROCODONE/ACETAMINOPHEN 10/325MG TABLET PO PRN ×3 (01:16→17:00)
[2022-07-30] MEDS: MEROPENEM 1,000 MG in SODIUM CHLORIDE 0.9% 100 ML IV SCH ×2 (05:41→14:47)
[2022-07-30] MEDS: BLOOD SUGAR DIAGNOSTIC STRIP TEST SCH ×3 (07:20→17:20)
[2022-07-30] MEDS: SUCRALFATE 1 G/10 ML UDC PO SCH ×3 (07:20→18:24)
[2022-07-30] MEDS: INSULIN LISPRO 100 UNITS/ML SUBCUT SCH ×3 (07:50→17:50)
[2022-07-30 08:09] LABS: HEMOGLOBIN 9.6 g/dL (12.0-16.0); MEAN CORPUSCULAR HEMOGLOBIN 25.9 pg (28.0-32.0); MEAN CORPUSCULAR VOLUME 78.1 fL (81.0-99.0); PLATELET 710 x1000/uL (130-400); RED BLOOD CELL COUNT 3.71 mill/uL (4.2-5.4); RED CELL DISTRIBUTION WIDTH 19.1 % (11.6-14.6)
[2022-07-30] MEDS: ASCORBIC ACID 500 MG TABLET PO SCH (08:37)
[2022-07-30] MEDS: ENOXAPARIN 40MG/0.4ML SYR SUBCUT SCH (08:38)
[2022-07-30] MEDS: FAMOTIDINE 20MG TABLET PO SCH (08:38)
[2022-07-30] MEDS: FERROUS SULFATE 300MG/5ML UDC PO SCH ×3 (08:38→18:25)
[2022-07-30] MEDS: ZINC SULFATE 220 MG ( 50 ) CAPSULE PO SCH (08:38)
[2022-07-30] MEDS: AMLODIPINE 10MG TABLET PO SCH (08:45)
[2022-07-30 10:35] LABS: CHLORIDE 106 mEq/L (98-107)
== END 2022-07-30 22:40 | DRG 871 ==
LOC: ER 14:13 → 6EST 18:09 → EDBEDREQTM 18:14 → EDBEDREQ 18:14 → ENRESERV 22:20 → ER 23:00
PROVIDERS: ADMIT Internal Medicine; ATTEND Internal Medicine
DX: A41.9 Sepsis, unspecified organism (principal); E43 Unspecified severe protein-calorie malnutrition; L89.623 Pressure ulcer of left heel, stage 3; N39.0 Urinary tract infection, site not specified; I82.403 Acute embolism and thrombosis of unspecified deep veins of lower extremity, bilateral; M87.9 Osteonecrosis, unspecified; D50.9 Iron deficiency anemia, unspecified; D75.838 Other thrombocytosis; E87.6 Hypokalemia; E11.9 Type 2 diabetes mellitus without complications; L89.150 Pressure ulcer of sacral region, unstageable; J44.9 Chronic obstructive pulmonary disease, unspecified; K21.9 Gastro-esophageal reflux disease without esophagitis; E78.00 Pure hypercholesterolemia, unspecified; I10 Essential (primary) hypertension; L89.159 Pressure ulcer of sacral region, unspecified stage; I48.91 Unspecified atrial fibrillation; M16.11 Unilateral primary osteoarthritis, right hip; E78.5 Hyperlipidemia, unspecified; F41.9 Anxiety disorder, unspecified; R32 Unspecified urinary incontinence; Z88.0 Allergy status to penicillin; Z82.49 Family history of ischemic heart disease and other diseases of the circulatory system; Z83.3 Family history of diabetes mellitus; Z90.710 Acquired absence of both cervix and uterus; Z79.899 Other long term (current) drug therapy; Z68.26 Body mass index [BMI] 26.0-26.9, adult; Z79.84 Long term (current) use of oral hypoglycemic drugs
CPT/HCPCS: 36415; 80048; 80053; 80202; 82962; 83540; 83550; 83605; 83735; 84100; 84145; 84484; 85025; 85027; 93005; 93970; 97162; 97166; 99285; A6261; C1893; J0696; J1650; J2185; J3370; J3475; J7050; J7060

== ENCOUNTER 2022-09-20 15:17 | Emergency (ER) | payer MEDICARE, MEDICAID ==
[~2022-09-20] VITALS: Ht 167.6 cm; Wt 64.0 kg
[2022-09-20 16:23] LABS: BASOPHILS % 1.4 % (0.0-2.0); EOSINOPHILS % 2.7 % (0.0-5.0); HEMOGLOBIN. 7.4 g/dL (12.0-16.0); LYMPHOCYTES % 16.6 % (20.0-50.0); MEAN CORPUSCULAR HEMOGLOBIN 24.3 pg (28.0-32.0); MEAN CORPUSCULAR VOLUME 75.6 fL (81.0-99.0); MEAN PLATELET VOLUME 7.4 fl (7.4-10.4); MONOCYTES % 10.6 % (2.0-8.0); NEUTROPHILS % 68.7 % (40.0-76.0); PLATELET 443 x1000/uL (130-400); RED BLOOD CELL COUNT 3.04 mill/uL (4.2-5.4); RED CELL DISTRIBUTION WIDTH 22.5 % (11.6-14.6)
[2022-09-20 16:33] LABS: CHLORIDE 109 mEq/L (98-107)
[2022-09-20 16:54] LABS: PLATELET ESTIMATE INCREASED
[2022-09-20 20:00] VITALS: BP 139/70
== END 2022-09-21 00:58 ==
LOC: ER 15:17
DX: D64.9 Anemia, unspecified (principal); G89.29 Other chronic pain; Z59.00 Homelessness unspecified; I48.91 Unspecified atrial fibrillation; J44.9 Chronic obstructive pulmonary disease, unspecified; E11.9 Type 2 diabetes mellitus without complications; K21.9 Gastro-esophageal reflux disease without esophagitis; E78.00 Pure hypercholesterolemia, unspecified; I10 Essential (primary) hypertension; Z79.899 Other long term (current) drug therapy; Z88.0 Allergy status to penicillin
CPT/HCPCS: 36415; 71045; 80053; 84484; 85025; 86850; 86900; 93005; 99285

== ENCOUNTER 2023-01-09 21:07 | Inpatient (IN) | payer MEDICARE, MEDICAID ==
[~2023-01-09] VITALS: Ht 162.6 cm; Wt 73.9 kg
[2023-01-09] MEDS ORDERED: SODIUM CHLORIDE 0.9% 1,000 ML IV ONE ×2 (22:00→23:00)
[2023-01-09 22:49] LABS: HEMATOCRIT. 28.5 % (36.0-48.0); HEMOGLOBIN. 8.9 g/dL (12.0-16.0); MEAN CORPUSCULAR HEMOGLOBIN 22.6 pg (28.0-32.0); MEAN CORPUSCULAR VOLUME 72.4 fL (81.0-99.0); MEAN PLATELET VOLUME 8.2 fl (7.4-10.4); PLATELET 266 x1000/uL (130-400); RED BLOOD CELL COUNT 3.94 mill/uL (4.2-5.4); RED CELL DISTRIBUTION WIDTH 25.6 % (11.6-14.6)
[2023-01-09 22:57] LABS: CHLORIDE 104 mEq/L (98-107)
[2023-01-09] MEDS ORDERED: MEROPENEM 1,000 MG in SODIUM CHLORIDE 0.9% 100 ML IV ONE (23:15)
[2023-01-09] MEDS ORDERED: VANCOMYCIN 1G PREMIX 200 ML IV ONE (23:15)
[2023-01-09 23:16] LABS: PLATELET ESTIMATE NORMAL
[2023-01-09 23:40] LABS: INR 1.2; PROTHROMBIN TIME 12.7 sec (9.6-11.0)
[2023-01-10] VITALS (58 sets, daily range): BP systolic 60–137; BP diastolic 41–87
[2023-01-10] MEDS ORDERED: NOREPINEPHRINE 8MG/250ML PMX 250 ML IV STA (01:12)
[2023-01-10] MEDS ORDERED: DOCUSATE SODIUM 100MG CAPSULE PO PRN (01:30)
[2023-01-10] MEDS ORDERED: IPRATROPIUM/ALBUTEROL 0.5-3(2.5)MG/3ML NEB HHN PRN (01:30)
[2023-01-10] MEDS ORDERED: CLONIDINE 0.1MG TABLET PO PRN (01:30)
[2023-01-10] MEDS ORDERED: GUAIFENESIN 200MG/10ML SUGAR FREE UDC PO PRN (01:30)
[2023-01-10] MEDS ORDERED: ACETAMINOPHEN 325MG TABLET PO PRN (01:30)
[2023-01-10] MEDS ORDERED: MAGNESIUM/ALUMINUM HYDROXIDE/SIMETHICONE 30ML UDC PO PRN (01:30)
[2023-01-10] MEDS ORDERED: NOREPINEPHRINE 8 MG in DEXT 5% WATER 242 ML IV PRN (02:30)
[2023-01-10] MEDS ORDERED: PHENYLEPHRINE 50 MG in DEXT 5% WATER 245 ML IV PRN (02:45)
[2023-01-10] MEDS: SODIUM CHLORIDE 0.9% 1,000 ML IV SCH ×3 (02:54→23:54)
[2023-01-10] MEDS ORDERED: DEXTROSE 50% WATER 50ML SYRINGE IV PRN (03:00)
[2023-01-10 04:22] LABS: VITAMIN B12 SERUM 602 pg/mL (211-911)
[2023-01-10 05:45] LABS: HEMATOCRIT. 27.8 % (36.0-48.0); HEMOGLOBIN. 8.9 g/dL (12.0-16.0); MEAN CORPUSCULAR HEMOGLOBIN 23.5 pg (28.0-32.0); MEAN CORPUSCULAR VOLUME 73.3 fL (81.0-99.0); MEAN PLATELET VOLUME 8.1 fl (7.4-10.4); PLATELET 260 x1000/uL (130-400); RED CELL DISTRIBUTION WIDTH 25.5 % (11.6-14.6)
[2023-01-10] MEDS: BLOOD SUGAR DIAGNOSTIC STRIP TEST SCH ×5 (05:47→20:22)
[2023-01-10 05:55] LABS: CHLORIDE 109 mEq/L (98-107)
[2023-01-10 06:22] LABS: HDL CHOLESTEROL 45 mg/dL (40-59); LDL CHOLESTEROL 31 mg/dL (5-100); T4 FREE 1.11 ng/dL (0.76-1.46)
[2023-01-10 06:24] LABS: PLATELET ESTIMATE NORMAL
[2023-01-10] MEDS: INSULIN LISPRO 100 UNITS/ML SUBCUT SCH ×4 (07:00→21:00)
[2023-01-10] MEDS ORDERED: VANCOMYCIN 500MG PREMIX 100 ML IV NR (08:00)
[2023-01-10] MEDS ORDERED: NOREPINEPHRINE 8MG/250ML PMX 250 ML IV PRN (08:30)
[2023-01-10] MEDS ORDERED: MEROPENEM 1,000 MG in SODIUM CHLORIDE 0.9% 100 ML IV SCH ×2 (09:00→21:00)
[2023-01-10] MEDS: PANTOPRAZOLE SODIUM 40 MG/VIAL IV SCH (10:34)
[2023-01-10] MEDS: ACETAMINOPHEN 325MG TABLET PO PRN ×2 (10:34→20:33)
[2023-01-10] MEDS ORDERED: SODIUM CHLORIDE 0.9% 1000ML BAG (SEPSIS BOLUS) IV ONE (11:45)
[2023-01-10] MEDS: KETOROLAC 15MG/ML VIAL IV PRN (17:01)
[2023-01-10] MEDS: MEROPENEM 500MG in NORMAL SALINE 50ML IV SCH (20:33)
[2023-01-11] VITALS (58 sets, daily range): BP systolic 94–135; BP diastolic 36–97
[2023-01-11] MEDS: BLOOD SUGAR DIAGNOSTIC STRIP TEST SCH ×6 (00:04→20:00)
[2023-01-11] MEDS: KETOROLAC 15MG/ML VIAL IV PRN ×2 (01:51→22:54)
[2023-01-11] MEDS ORDERED: NOREPINEPHRINE 8 MG in DEXT 5% WATER 242 ML IV PRN (03:15)
[2023-01-11] MEDS: ACETAMINOPHEN 325MG TABLET PO PRN (06:04)
[2023-01-11] MEDS: INSULIN LISPRO 100 UNITS/ML SUBCUT SCH ×4 (07:00→20:22)
[2023-01-11] MEDS: PANTOPRAZOLE SODIUM 40 MG/VIAL IV SCH (09:00)
[2023-01-11] MEDS: VANCOMYCIN 750MG PREMIX 150 ML IV SCH (09:00)
[2023-01-11] MEDS: MEROPENEM 500MG in NORMAL SALINE 50ML IV SCH ×2 (09:00→20:28)
[2023-01-11] MEDS: IPRATROPIUM/ALBUTEROL 0.5-3(2.5)MG/3ML NEB HHN SCH ×2 (15:14→20:03)
[2023-01-11] MEDS: BUDESONIDE 0.5MG/2ML NEB HHN SCH (15:15)
[2023-01-11] MEDS ORDERED: NALOXONE HCL 0.4 MG/ML 1ML VIAL ONE (15:29)
[2023-01-11] MEDS ORDERED: POTASSIUM CHLORIDE 20MEQ TABLET SR PO NR (16:45)
[2023-01-11] MEDS ORDERED: NALOXONE HCL 0.4MG/ML VIAL IV PRN (17:00)
[2023-01-11] MEDS: ENOXAPARIN 30MG/0.3ML SYR SUBCUT SCH (17:05)
[2023-01-11] MEDS: TRAMADOL 50MG TABLET PO PRN (20:28)
[2023-01-12] VITALS (75 sets, daily range): BP systolic 84–146; BP diastolic 53–88
[2023-01-12] MEDS: IPRATROPIUM/ALBUTEROL 0.5-3(2.5)MG/3ML NEB HHN SCH ×4 (02:01→21:14)
[2023-01-12] MEDS: ONDANSETRON HCL 4MG/2ML INJ IV PRN (04:55)
[2023-01-12 04:57] LABS: HEMATOCRIT. 26.2 % (36.0-48.0); HEMOGLOBIN. 8.6 g/dL (12.0-16.0); MEAN CORPUSCULAR HEMOGLOBIN 23.9 pg (28.0-32.0); MEAN CORPUSCULAR VOLUME 72.5 fL (81.0-99.0); MEAN PLATELET VOLUME 8.5 fl (7.4-10.4); PLATELET 273 x1000/uL (130-400); RED BLOOD CELL COUNT 3.61 mill/uL (4.2-5.4); RED CELL DISTRIBUTION WIDTH 25.1 % (11.6-14.6)
[2023-01-12 05:03] LABS: CHLORIDE 114 mEq/L (98-107)
[2023-01-12] MEDS: BLOOD SUGAR DIAGNOSTIC STRIP TEST SCH ×4 (06:11→21:19)
[2023-01-12] MEDS: INSULIN LISPRO 100 UNITS/ML SUBCUT SCH ×4 (06:11→21:00)
[2023-01-12 07:19] LABS: PLATELET ESTIMATE NORMAL
[2023-01-12] MEDS: BUDESONIDE 0.5MG/2ML NEB HHN SCH ×3 (07:49→21:14)
[2023-01-12] MEDS: KETOROLAC 15MG/ML VIAL IV PRN ×2 (08:16→19:29)
[2023-01-12] MEDS: VANCOMYCIN 750MG PREMIX 150 ML IV SCH (08:40)
[2023-01-12] MEDS: MEROPENEM 500MG in NORMAL SALINE 50ML IV SCH ×2 (08:40→21:53)
[2023-01-12] MEDS: PANTOPRAZOLE SODIUM 40 MG/VIAL IV SCH (08:41)
[2023-01-12] MEDS: ACETAMINOPHEN 325MG TABLET PO PRN ×2 (11:28→22:00)
[2023-01-12 13:49] LABS: CLARITY URINE TURBID (CLEAR); COLOR URINE RED (YELLOW); KETONES URINE NEGATIVE (NEGATIVE); LEUKOCYTE ESTERASE URINE 3+ (NEGATIVE); NITRITE URINE POSITIVE (NEGATIVE); OCCULT BLOOD URINE 1+ (NEGATIVE); PROTEIN URINE 1+ (NEGATIVE); UROBILINOGEN URINE 0.2 E.U./dL (0.2-1.0)
[2023-01-12] MEDS: ENOXAPARIN 30MG/0.3ML SYR SUBCUT SCH (17:05)
[2023-01-12] MEDS: TRAMADOL 50MG TABLET PO PRN (17:06)
[2023-01-13] VITALS: BP 144/72
[2023-01-13] MEDS: IPRATROPIUM/ALBUTEROL 0.5-3(2.5)MG/3ML NEB HHN SCH ×4 (02:20→21:37)
[2023-01-13 04:48] VITALS: BP 128/72
[2023-01-13] MEDS: KETOROLAC 15MG/ML VIAL IV PRN ×3 (05:12→14:56)
[2023-01-13] MEDS: BLOOD SUGAR DIAGNOSTIC STRIP TEST SCH ×4 (06:43→20:47)
[2023-01-13] MEDS: BUDESONIDE 0.5MG/2ML NEB HHN SCH (07:15)
[2023-01-13] MEDS: INSULIN LISPRO 100 UNITS/ML SUBCUT SCH ×4 (07:20→21:00)
[2023-01-13 07:38] LABS: BASOPHILS % 0.5 % (0.0-2.0); EOSINOPHILS % 3.2 % (0.0-5.0); HEMATOCRIT. 25.1 % (36.0-48.0); HEMOGLOBIN. 8.2 g/dL (12.0-16.0); LYMPHOCYTES % 12.7 % (20.0-50.0); MEAN CORPUSCULAR HEMOGLOBIN 24.2 pg (28.0-32.0); MEAN CORPUSCULAR VOLUME 74.3 fL (81.0-99.0); MEAN PLATELET VOLUME 8.6 fl (7.4-10.4); MONOCYTES % 12.2 % (2.0-8.0); NEUTROPHILS % 71.4 % (40.0-76.0); PLATELET 280 x1000/uL (130-400); RED BLOOD CELL COUNT 3.38 mill/uL (4.2-5.4); RED CELL DISTRIBUTION WIDTH 24.9 % (11.6-14.6)
[2023-01-13 08:00] VITALS: BP 121/64
[2023-01-13] MEDS: MULTIVITAMINS,THER W-MINERALS TABLET PO SCH (08:32)
[2023-01-13] MEDS: PANTOPRAZOLE SODIUM 40 MG/VIAL IV SCH (08:33)
[2023-01-13 08:44] LABS: CHLORIDE 114 mEq/L (98-107)
[2023-01-13] MEDS: MEROPENEM 500MG in NORMAL SALINE 50ML IV SCH ×2 (09:47→20:52)
[2023-01-13] MEDS: VANCOMYCIN 750MG PREMIX 150 ML IV SCH (09:48)
[2023-01-13 12:00] VITALS: BP 126/69
[2023-01-13 16:00] VITALS: BP 122/70
[2023-01-13] MEDS: ENOXAPARIN 30MG/0.3ML SYR SUBCUT SCH (17:22)
[2023-01-13 20:00] VITALS: BP 120/72
[2023-01-13] MEDS: TRAMADOL 50MG TABLET PO PRN (20:49)
[2023-01-14] VITALS (7 sets, daily range): BP systolic 124–149; BP diastolic 66–82
[2023-01-14] MEDS: ACETAMINOPHEN 325MG TABLET PO PRN (01:20)
[2023-01-14] MEDS: IPRATROPIUM/ALBUTEROL 0.5-3(2.5)MG/3ML NEB HHN SCH ×4 (01:30→22:16)
[2023-01-14] MEDS: ONDANSETRON HCL 4MG/2ML INJ IV PRN ×2 (04:22→22:52)
[2023-01-14] MEDS: BLOOD SUGAR DIAGNOSTIC STRIP TEST SCH ×4 (06:25→21:59)
[2023-01-14] MEDS: INSULIN LISPRO 100 UNITS/ML SUBCUT SCH ×4 (07:20→21:59)
[2023-01-14 07:38] LABS: HEMATOCRIT. 26.1 % (36.0-48.0); HEMOGLOBIN. 8.7 g/dL (12.0-16.0); MEAN CORPUSCULAR HEMOGLOBIN 24.3 pg (28.0-32.0); MEAN CORPUSCULAR VOLUME 72.9 fL (81.0-99.0); MEAN PLATELET VOLUME 8.6 fl (7.4-10.4); PLATELET 301 x1000/uL (130-400); RED BLOOD CELL COUNT 3.57 mill/uL (4.2-5.4); RED CELL DISTRIBUTION WIDTH 25.2 % (11.6-14.6)
[2023-01-14 07:47] LABS: CHLORIDE 113 mEq/L (98-107)
[2023-01-14] MEDS: VANCOMYCIN 750MG PREMIX 150 ML IV SCH (08:33)
[2023-01-14] MEDS: PANTOPRAZOLE SODIUM 40 MG/VIAL IV SCH (08:33)
[2023-01-14] MEDS: MULTIVITAMINS,THER W-MINERALS TABLET PO SCH (08:33)
[2023-01-14] MEDS: MEROPENEM 500MG in NORMAL SALINE 50ML IV SCH ×2 (08:34→22:14)
[2023-01-14] MEDS: TRAMADOL 50MG TABLET PO PRN ×2 (10:05→22:16)
[2023-01-14 10:58] LABS: PLATELET ESTIMATE NORMAL
[2023-01-14] MEDS: LACTULOSE 20G/30ML UDC PO SCH ×2 (16:59→22:14)
[2023-01-14] MEDS: GABAPENTIN 100MG CAPSULE PO SCH ×2 (16:59→22:14)
[2023-01-14] MEDS: ENOXAPARIN 30MG/0.3ML SYR SUBCUT SCH (17:00)
[2023-01-14] MEDS ORDERED: FAMOTIDINE 20MG TABLET PO SCH (21:00)
[2023-01-14] MEDS: BUDESONIDE 0.5MG/2ML NEB HHN SCH (22:16)
[2023-01-15] MEDS: IPRATROPIUM/ALBUTEROL 0.5-3(2.5)MG/3ML NEB HHN SCH ×3 (03:06→15:55)
[2023-01-15 04:00] VITALS: BP 126/71
[2023-01-15] MEDS: LACTULOSE 20G/30ML UDC PO SCH ×2 (06:00→06:38)
[2023-01-15] MEDS: GABAPENTIN 100MG CAPSULE PO SCH ×2 (06:38→14:16)
[2023-01-15 06:44] LABS: HEMATOCRIT. 26.3 % (36.0-48.0); HEMOGLOBIN. 8.6 g/dL (12.0-16.0); MEAN CORPUSCULAR HEMOGLOBIN 23.9 pg (28.0-32.0); MEAN CORPUSCULAR VOLUME 72.8 fL (81.0-99.0); MEAN PLATELET VOLUME 8.6 fl (7.4-10.4); PLATELET 352 x1000/uL (130-400); RED BLOOD CELL COUNT 3.61 mill/uL (4.2-5.4)
[2023-01-15] MEDS: BLOOD SUGAR DIAGNOSTIC STRIP TEST SCH ×2 (06:56→12:20)
[2023-01-15 07:18] LABS: CHLORIDE 111 mEq/L (98-107)
[2023-01-15] MEDS: INSULIN LISPRO 100 UNITS/ML SUBCUT SCH ×2 (07:20→12:20)
[2023-01-15 08:00] VITALS: BP 139/78
[2023-01-15] MEDS: BUDESONIDE 0.5MG/2ML NEB HHN SCH (08:36)
[2023-01-15] MEDS: MULTIVITAMINS,THER W-MINERALS TABLET PO SCH (10:22)
[2023-01-15] MEDS: TRAMADOL 50MG TABLET PO PRN (10:23)
[2023-01-15 12:00] VITALS: BP 122/63
[2023-01-15 16:00] VITALS: BP 116/57
[2023-01-15 16:30] LABS: PLATELET ESTIMATE NORMAL
[2023-01-15 16:31] VITALS: BP 116/57
== END 2023-01-15 20:24 | DRG 871 ==
LOC: ER 21:07 → MICUSO 01-10 01:04 → EDBEDREQSVC 01-10 02:45 → MICUSO 01-10 09:18 → 3WST 01-12 20:13
PROVIDERS: ADMIT Internal Medicine; ATTEND Internal Medicine
PROC: 30233N1 Transfusion of Nonautologous Red Blood Cells into Peripheral Vein, Percutaneous Approach (ICD-10-PCS; principal; 2023-01-10)
DX: A41.9 Sepsis, unspecified organism (principal); E43 Unspecified severe protein-calorie malnutrition; L89.154 Pressure ulcer of sacral region, stage 4; G92.8 Other toxic encephalopathy; R65.21 Severe sepsis with septic shock; J96.00 Acute respiratory failure, unspecified whether with hypoxia or hypercapnia; I48.19 Other persistent atrial fibrillation; J44.0 Chronic obstructive pulmonary disease with (acute) lower respiratory infection; N17.9 Acute kidney failure, unspecified; I10 Essential (primary) hypertension; Z20.822 Contact with and (suspected) exposure to COVID-19; D64.9 Anemia, unspecified; E11.9 Type 2 diabetes mellitus without complications; N93.9 Abnormal uterine and vaginal bleeding, unspecified; K44.9 Diaphragmatic hernia without obstruction or gangrene; K52.9 Noninfective gastroenteritis and colitis, unspecified; Z66 Do not resuscitate; E78.5 Hyperlipidemia, unspecified; R33.9 Retention of urine, unspecified; S31.000A Unspecified open wound of lower back and pelvis without penetration into retroperitoneum, initial encounter; X58.XXXA Exposure to other specified factors, initial encounter; K21.9 Gastro-esophageal reflux disease without esophagitis; K80.20 Calculus of gallbladder without cholecystitis without obstruction; Z88.0 Allergy status to penicillin; Z68.28 Body mass index [BMI] 28.0-28.9, adult; Y93.89 Activity, other specified; Y92.89 Other specified places as the place of occurrence of the external cause; Y99.8 Other external cause status
CPT/HCPCS: 36415; 71045; 74018; 74176; 76700; 80048; 80053; 80061; 80202; 81003; 82040; 82607; 82746; 82962; 83036; 83605; 83880; 84134; 84145; 84439; 84443; 84484; 85025; 86850; 86900; 86920; 87426; 92610; 93005; 93306; 94640; 97161; 99291; A6261; C9113; J1650; J1885; J2185; J2310; J2405; J3370; J3490; J7030; J7050; J7060; J7626; P9016; A4315